=== PATIENT | male | born 1980 | race Caucasian/White ===

== ENCOUNTER 2023-05-05 13:55 | Inpatient (IN) | payer OTHER, SELFPAY ==
[2023-05-05] VITALS (25 sets, daily range): BP systolic 98–135; BP diastolic 47–103; PULSE 109–129; RESP 16–27; TEMP 36.9–39.2; O2SAT 89–100
--- NOTE | ~2023-05-05 | US_ITS ---
EXAMINATION: US venous doppler [facility] DATE: 05/06/2023 15:08 INDICATION: SOB . TECHNIQUE: Grayscale images without and with compression and Doppler images of the bilateral lower ex tremity veins were obtained. COMPARISON: None FINDINGS: The right common femoral vein, profunda (deep) femoral vein, femoral vein, popliteal vein, peroneal v ein, posterior tibial veins, gastrocnemius vein, and greater saphenous vein are patent. The left common femoral vein, profunda (deep) femoral vein, femoral vein, popliteal vein, peroneal v ein, posterior tibial veins, gastrocnemius vein, and greater saphenous vein are patent. IMPRESSION: Patent bilateral lower extremity veins. No evidence of deep venous thrombosis. Reviewed, dictated and finalized at location K.
--- NOTE | ~2023-05-05 | CT_ITS ---
EXAMINATION: CTA chest PE protocol DATE: 05/05/2023 19:08 INDICATION: hypoxia, flu+; upper back pain TECHNIQUE: Computed tomography angiography (CTA) of the chest was performed with 100 mL Omnipaque-350 intravenous contrast timed to evaluate the pulmonary arteries. Coronal maximum intensity projection 3D-reconstructions were created by the technologist. The dose-length product (DLP) was 1024.81 mGy-cm . Automated exposure control and iterative reconstruction technique were employed. COMPARISON: None. FINDINGS: Lung parenchyma and airways: Confluent and centrilobular nodular consolidative opacities in the bilat eral lower lobes. Focal scattered areas of subsegmental consolidation and groundglass opacity present in the remaining lung lobes. Pleura: Unremarkable. Thoracic inlet, axillae and chest wall: Unremarkable. Thoracic aorta: No significant dilation. No dissection. Mediastinum: Enlarged mediastinal lymph nodes. Heart and pericardium: Normal. Coronary artery calcifications: Absent. Upper abdomen: No significant finding. Bones: No acute osseous finding. Pulmonary arteries: Study quality: There is motion artifact, worst in the lower lobes, somewhat limit ed evaluation of the left lower lobe segmental and subsegmental pulmonary arteries. No pulmonary embo li detected. IMPRESSION: No definite CT evidence of acute pulmonary embolus, noting that motion artifact limits evaluation of the left lower lobe subsegmental and segmental arteries. Severe bilateral multifocal pneumonia. Mediastinal lymphadenopathy. Reviewed, dictated and finalized at location K.
--- NOTE | ~2023-05-05 | XR_ITS ---
XR chest 1V portable 05/11/2023 06:05 Indication: Shortness of breath Procedure: AP portable chest Comparison: Comparison to multiple prior studies sequentially, with oldest reviewed study dated 05/06. Findings: Patchy bibasilar airspace disease. No significant effusion. No pneumothorax. Impression: 1: Patchy bibasilar airspace disease which may reflect edema or pneumonia. Reviewed, dictated and finalized at location A. Impression: 1: Patchy bibasilar airspace disease which may reflect edema or pneumonia.
--- NOTE | ~2023-05-05 | CT_ITS ---
EXAMINATION: CTA chest PE protocol DATE: 05/11/2023 16:57 INDICATION: Tachycardia TECHNIQUE: Computed tomography angiography (CTA) of the chest was performed with 100 mL Omnipaque-350 intravenous contrast timed to evaluate the pulmonary arteries. Coronal maximum intensity projection 3D-reconstructions were created by the technologist. The dose-length product (DLP) was 847.86 mGy-cm. Automated exposure control and iterative reconstruction technique were employed. COMPARISON: CTPA 05/05/2023. FINDINGS: Lung parenchyma and airways: Multifocal groundglass and consolidative opacities, stable in the bilate ral upper lungs, slightly improving in the bilateral lower lungs. Pleura: Unremarkable. Thoracic inlet, axillae and chest wall: Unremarkable. Thoracic aorta: No significant dilation. No dissection. Mediastinum: Left hilar lymphadenopathy. Heart and pericardium: RV/LV ratio 1.2. Coronary artery calcifications: Absent. Upper abdomen: No significant finding. Bones: No acute osseous finding. Pulmonary arteries: Study quality: Motion artifact limits evaluation in the lower lobes. Multiple halie ateral upper lobe occlusive and nonocclusive segmental and subsegmental emboli. IMPRESSION: Multiple bilateral upper lobe acute occlusive and nonocclusive segmental and subsegmental pulmonary e mboli. Moderate clot burden. RV/LV ratio 1.2. Bilateral multifocal pneumonia. Results pertaining to acute pulmonary embolism reported telephonically to Gita Good RN by Wally Ferreira at 5:34 PM on 05/11/2023. Reviewed, dictated and finalized at location K. IMPRESSION: Multiple bilateral upper lobe acute occlusive and nonocclusive segmental and andrade bsegmental pulmonary emboli. Moderate clot burden. RV/LV ratio 1.2. Bilateral multifocal pneumonia. Results pertaining to acute pulmonary embolism reported telephonically to Shana Good RN by Dr. Ferreira at 5:34 PM on 05/11/2023.
--- NOTE | ~2023-05-05 | XR_ITS ---
EXAMINATION: XR chest 2V DATE: 05/15/2023 13:42 INDICATION: Pneumonia. TECHNIQUE: Frontal and lateral views of the chest were obtained. COMPARISON: Chest single view 05/11/2023, chest CT 05/11/2023 FINDINGS: There are patchy airspace opacities in the lungs involving all lobes. There are small pleur al effusions. No pneumothorax. The heart size is normal. There is mild chronic anterior wedging of mu ltiple vertebral bodies. IMPRESSION: 1. Diffuse lung disease with worsening on the right from 05/11/2023, consistent with pneumonia. 2. Small pleural effusions. Reviewed, dictated and finalized at location A.
--- NOTE | ~2023-05-05 | XR_ITS ---
Portable chest x-ray Comparison: 06/29/2005 Clinical History: Shortness of breath Findings: There is extensive bibasilar and right perihilar consolidation. Possible small right pleur al effusion. Cardiomediastinal silhouette is stable. Bones and soft tissues are unremarkable. Impression: Extensive bibasilar and right perihilar consolidation. Correlate for pulmonary edema versus pneumonia . Suspected small right pleural effusion. Reviewed, dictated and finalized at location . Impression: Extensive bibasilar and right perihilar consolidation. Correlate for pulmonary edema versus pneumonia. Suspected small right pleural effusion.
--- NOTE | ~2023-05-05 | US_ITS ---
EXAMINATION: US venous doppler LE DATE: 05/11/2023 15:56 INDICATION: Lower limb pain. TECHNIQUE: Grayscale images without and with compression and Doppler images of the bilateral lower ex tremity veins were obtained. COMPARISON: 05/06/2023 FINDINGS: The right common femoral vein, profunda (deep) femoral vein, femoral vein, popliteal vein, posterior tibial veins, and greater saphenous vein are patent. Noncompressible left posterior tibial vein, with minimal to no flow. The left common femoral vein, pr ofunda (deep) femoral vein, femoral vein, popliteal vein, peroneal vein, and greater saphenous vein are patent. IMPRESSION: Acute DVT involving the left posterior tibial vein. No right lower extremity DVT, noting that the right peroneal veins were not visualized. Reviewed, dictated and finalized at location K. IMPRESSION: Acute DVT involving the left posterior tibial vein. No right lower extremity DVT, noting that the right peroneal veins were not vis ualized.
--- NOTE | ~2023-05-05 | XR_ITS ---
Portable chest x-ray Comparison: 05/07/2023 Clinical History: Shortness of breath Findings: There is bibasilar airspace consolidation, unchanged. Possible minimal pleural effusions. Cardiomediastinal silhouette is stable. Bones and soft tissues are unremarkable. Impression: Bibasilar pulmonary edema versus pneumonia. Minimal pleural effusions. Reviewed, dictated and finalized at [facility]. Impression: Bibasilar pulmonary edema versus pneumonia. Minimal pleural effusions.
--- NOTE | 2023-05-05 14:11 | PC.NURSE ---
Pt 88% on room air. 2L of 02NC applied in triage pt now 92%.
--- NOTE | 2023-05-05 15:25 | ECG_ITS ---
Measurements Intervals [place] Rate: 117 P: 56 WA: 146 QRS: 118 QRSD: 105 T: 54 QT: 313 QTc: 437 Interpretive Statements SINUS TACHYCARDIA RIGHT AXIS DEVIATION INCOMPLETE RIGHT BUNDLE BRANCH BLOCK BORDERLINE ST-T WAVE ABNORMALITY- ANT/INF LEADS BASELINE ARTIFACT- II, III ABNORMAL ECG NO PREVIOUS ECG AVAILABLE FOR COMPARISON Electronically Signed On 05-05-2023 17:29:46 CDT by Randal Laird D.O.
--- NOTE | 2023-05-05 15:26 | ED.URI ---
HPI - URI/Sore Throat General Chief Complaint: Upper Respiratory Infection Stated Complaint: Flu A + and has brown sputum Time Seen by Provider: 05/05/23 15:09 History of Present Illness HPI Narrative: Patient is a 42-year-old male presenting with shortness of breath. Patient states that he was diagnosed with influenza approximately 3 days ago. He was sent home with Tamiflu, prednisone, and inhaler. States that he took all of these as prescribed but he continues to worsen. Complains of diffuse body aches as well as upper back pain. Feel short of breath. Has been coughing up brown sputum. States he has had no appetite but no vomiting, no abdominal pain. No leg swelling. No further complaints. Related Data Home Medications Medication Instructions Recorded Confirmed No Home Medications 05/05/23 05/05/23 Allergies Allergy/AdvReac Type Severity Reaction Status Date / Time No Known Allergies Allergy Verified 05/05/23 16:32 Review of Systems Review of Systems: All systems reviewed & are unremarkable except as noted in HPI and below PMFSH Past Medical History Medical History (Updated 05/09/23 @ 22:02 by Erica Livingston MD) Continuous tobacco abuse Morbid obesity with BMI of 40.0-44.9, adult Surgical History Surgical History (Updated 05/05/23 @ 22:28 by Linda Landis DO) No history of previous surgery Family History Family History (Updated 05/05/23 @ 22:29 by Linda Landis DO) Mother Healthy adult Social History Social History (Updated 05/05/23 @ 22:31 by Linda Landis DO) Social History: the patient has been from his since 2017. He has 2 sons ages 8 and 5. He is currently unemployed. 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 He smokes 3 cigars a day since his early 20s. He denies any alcohol use. Code status: Full code surrogate decision maker: Tory Pearce Smoking status: Current some day smoker Tobacco type: cigars Alcohol intake: never Substance use type: former substance user, marijuana and heroin Last use: Heroin quit in 2007, Currently uses Marijuana Do You Feel Safe in your Home?: Yes Lack of Transportation: No Lack of Food: Never True Current Housing: I Have Housing Concerned About Future Housing: No Difficulty Paying Gas/Electric Bills: No Difficulty Paying for Meds: No Currently Unemployed: No Education: High School Diploma/GED Difficulty w/ Childcare or Family Care: No Spiritual care concerns: No Exam Narrative: GENERAL: Ill-appearing, pleasant and cooperative HEAD: Normocephalic, atraumatic. EYES: PERRLA and EOMI. ENT: Mucous membranes dry NECK: Supple. CHEST: Coarse breath sounds bilaterally HEART: Tachycardic, regular rhythm ABDOMEN: Soft, nontender, nondistended EXTREMITIES: Normal range of motion. No edema. SKIN: Warm, dry, no rash. NEURO: No focal deficits. Alert and oriented x3. PSYCH: Normal mood and affect. Course Vital Signs Vital signs: Vital Signs Temperature 102.5 F H 05/05/23 14:02 Pulse Rate 129 H 05/05/23 14:02 Respiratory Rate 16 05/05/23 14:02 Blood Pressure 135/73 05/05/23 14:02 Pulse Oximetry 89 L 05/05/23 14:02 Temperature 97.6 F 05/09/23 20:00 Pulse Rate 104 H 05/09/23 20:42 Respiratory Rate 20 05/09/23 20:42 Blood Pressure 137/74 05/09/23 20:00 Pulse Oximetry 97 05/09/23 20:59 Oxygen Delivery Nasal Cannula 05/09/23 20:59 Oxygen Flow Rate 2 05/09/23 20:59 Fraction of Inspired Oxygen 21 05/09/23 03:25 Procedures Central Line Placement Right Femoral: Central Line Date: 05/05/23 Central Line Time: 17:51 Discussed w/ the patient/family/POA,the placement of a central venous catheter, including its clinical necessity/indication & associated potential risks, benifits and alternatives.: Yes The patient/family/POA understand(s) and acknowledge(s) the need to proceed with pelon
--- NOTE | 2023-05-05 16:27 | PC.NURSE ---
Provider aware of multiple PIV attempts and unable to obtain blood samples, another nurse in room at this time attempting. No further orders.
[2023-05-05 17:09] LABS: Influenza A QL RT-PCR Positive (Negative); Influenza B QL RT-PCR Negative (Negative); RSV RNA, RT-PCR Negative (Negative); SARS-CoV-2 RNA PCR Negative (Negative)
[2023-05-05] MEDS: MORPHINE SULFATE INJ (*CRX) 10 MG/ML AMP IM (17:09)
--- NOTE | 2023-05-05 17:12 | PC.NURSE ---
Dr. Livingston at bedside to insert R fem central line.
[2023-05-05] MEDS: SODIUM CHLORIDE 0.9% IV 1,000 ML 999 ML IV CONT ×4 (17:28→22:59)
[2023-05-05 18:11] LABS: Hematocrit 42.6 % (42.0-52.0); Hemoglobin 14.2 g/dL (14.0-18.0); Immature Granulocyte Absolute 0.13 K/mm3 (0.00-0.031); Immature Granulocyte Percent A 2.9 % (0-0.5); Immature Platelet Fraction Pct 6.5 % (0.9-11.2); Lymphocytes Absolute Auto 0.57 K/mm3 (0.9-3.2); Lymphocytes Percent Auto 12.7 % (18.3-44.2); Mean Corpuscular HGB Conc 33.3 g/dl (32-36); Mean Corpuscular Hemoglobin 27.4 pg (26-34); Mean Corpuscular Volume 82.1 fl (80-100); Mean Platelet Volume 10.4 fl (7.4-10.4); Monocytes Absolute Auto 0.4 K/mm3 (0.1-0.6); Monocytes Percent Auto 8.7 % (2.6-8.5); Neutrophils Absolute Auto 3.4 K/mm3 (1.3-6.7); Neutrophils Percent Auto 75.7 % (45.5-73.1); Platelet Count Result 131 k/mm3 (150-375); Red Blood Count 5.19 M/mm3 (4.6-6.20); Red Cell Distribution Width 13.9 % (11.5-14.5); White Blood Count 4.5 K/mm3 (4.5-10.0)
[2023-05-05 18:20] LABS: Lactic Acid Reflex 1.6 mmol/L (0.7-2.0); Prothrombin Time 13.6 Seconds (11.1-14.7)
[2023-05-05 18:21] LABS: Alanine Aminotransferase 43 U/L (6-50); Albumin Level 3.5 g/dL (3.5-5.1); Alkaline Phosphatase 110 U/L (38-126); Anion Gap 1 mmol/L (8-16); Aspartate Amino Transferase 143 U/L (17-59); Bilirubin,Total 0.5 mg/dL (0.2-1.3); Blood Urea Nitrogen 10 mg/dL (9-20); Carbon Dioxide 32 mmol/L (22-30); Chloride 99 mmol/L (98-107); Estimated CRCL calculation 123 ml/min; Estimated Glomerular Filt Rate > 60; Glucose 118 mg/dL (65-110); Lipase 25 U/L (23-300); Partial Thromboplastin Time 34.9 Seconds (22.3-36.8); Potassium 3.5 mmol/L (3.4-5.0); Sodium 132 mmol/L (137-145)
[2023-05-05 18:33] LABS: Troponin I 0.026 ng/mL (0.000-0.034)
[2023-05-05] MEDS: PIPERACILLN/TAZ 3.375GM/NS50ML 3.375 GM/50 ML BAG IVPB (19:30)
[2023-05-05] MEDS: AZITHROMYCIN 500 MG/NS 250 ML 500 MG/250 ML BAG 250 MG IVPB (19:31)
[2023-05-05 20:04] LABS: MRSA (PCR) NOT DETECTED (NOT DETECTE)
[2023-05-05] MEDS: VANCOMYCIN 1,250 MG/NS 250 ML 1,250 MG/250 ML BAG 166.67 MG IVPB ×2 (21:26→22:40)
[2023-05-05 22:19] LABS: Fractional Inspired Oxygen 29 %; HCO3 VBG 22.8 mEq/l (24.0-30.0); PCO2 VBG 42.3 mmHg (42.0-48.0); PO2 VBG 31.3 mmHg (35.0-45.0)
[2023-05-05 22:20] LABS: Device NASAL CANNULA; Liters per Minute 2.5 LPM
--- NOTE | 2023-05-05 22:25 | PM.IMHP ---
H&P: HPI History of Present Illness Date/Time: 05/05/23 22:25 Chief Complaint: Flu with no improvement Narrative: 42-year-old male with past medical history of morbid obesity who presented to the ER with worsening respiratory symptoms after being diagnosed with influenza on the . The patient reports that he does not have any significant medical history but he also has not been evaluated by a doctor since 2017. He initially started having symptoms with generalized body aches, fever up to 104?, cough productive of brown sputum and chills on the . He he was evaluated at [facility] and provided with Tamiflu and Medrol Dosepak and albuterol inhaler. He completed both those today. Despite taking medications the symptoms have continued to worsen with increased work of breathing and not being able to sleep for 2 days due to high fever. He is noted to be wheezing right lung on exam and had crackles diffusely throughout all lung lucia. He has had decreased appetite. He has white plaquing noted to the tongue the rest of your exam was limited due to crowding of posterior oropharynx and patient's condition. He reports that his abdomen feels more tight since he came into the ER. He did receive 3 L normal saline bolus. His blood pressures were in the low 80s systolic just after my evaluation and he received another L bolus. Although the patient did not have significant leukocytosis CTA of the chest did demonstrate diffuse multifocal pneumonia. On exam he was grossly mottled and had delayed cap refill. Given his clinical appearance he was started on broad-spectrum antibiotic coverage in the ER. He did have drop in oxygen levels down to the mid 80s and placed on 2 L nasal cannula. He appeared critically RO at the time of my evaluation and have venous blood gas was obtained which was unremarkable except for a slightly lower PO2 than would be expected. Patient denies any history of prior lung disease, recent ill contacts, chest pain, palpitations. The patient reports that he feels better on oxygen and that is why the he is so somnolent and just wants to sleep. He states he has not slept in 2 days. Although the patient is still slow to respond to questions and is giving delayed responses. He denies any head injury dizziness and there was no localizing weakness on exam Review of Systems Review of Systems: 12 systems were reviewed with pertinent positives and negatives per HPI. Except as documented in the HPI, all other systems were reviewed and are negative. PMFSH Past Medical History Medical History (Updated 05/06/23 @ 03:15 by Linda Landis DO) Continuous tobacco abuse Morbid obesity with BMI of 40.0-44.9, adult Surgical History Surgical History (Updated 05/05/23 @ 22:28 by Linda Landis DO) No history of previous surgery Family History Family History (Updated 05/05/23 @ 22:29 by Linda Landis DO) Mother Healthy adult Social History Social History (Updated 05/05/23 @ 22:31 by Linda Landis DO) Social History: the patient has been from his since 2017. He has 2 sons ages 8 and 5. He is currently unemployed. 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 He smokes 3 cigars a day since his early 20s. He denies any alcohol use. Code status: Full code surrogate decision maker: Tory Gleason Home Medications and Allergies Home Medications Medication Instructions Recorded Confirmed Type No Home Medications 05/05/23 05/05/23 History Allergies Allergy/AdvReac Type Severity Reaction Status Date / Time No Known Allergies Allergy Verified 05/05/23 16:32 Vital Signs Vital Signs - 24 hr 05/05/23 14:02 05/05/23 16:29 05/05/23 15:01 Temperature 102.5 F H Pulse Rate 129 H 120 H Respiratory Rate 16 17 Blood Pressure 135/73 121/63 Pulse Oximetry 89 L 95 91 Oxygen Delivery Nasal Cannula Oxygen Flow Rate 2 05/05/23 15:16 05/05/23
[2023-05-05 23:29] LABS: Troponin I 0.025 ng/mL (0.000-0.034)
[2023-05-06] VITALS (32 sets, daily range): BP systolic 104–132; BP diastolic 59–108; PULSE 98–114; RESP 19–29; TEMP 35.6–37.1; O2SAT 87–100; BMI 46.0
[2023-05-06 03:05] LABS: Troponin I 0.036 ng/mL (0.000-0.034)
[2023-05-06 03:12] LABS: Estimated CRCL calculation 110 ml/min; Estimated Glomerular Filt Rate > 60
[2023-05-06] MEDS: CEFEPIME 2 GM/NS 50 ML 2 GM/50 ML BAG IVPB ×3 (04:20→20:45)
[2023-05-06 07:35] LABS: Alanine Aminotransferase 45 U/L (6-50); Albumin Level 2.9 g/dL (3.5-5.1); Alkaline Phosphatase 95 U/L (38-126); Anion Gap 1 mmol/L (8-16); Aspartate Amino Transferase 158 U/L (17-59); Basophils Percent Auto 0.5 % (0.2-1.2); Bilirubin,Total 0.4 mg/dL (0.2-1.3); Blood Urea Nitrogen 8 mg/dL (9-20); Calcium 7.4 mg/dL (8.4-10.2); Carbon Dioxide 29 mmol/L (22-30); Chloride 105 mmol/L (98-107); Estimated CRCL calculation 139 ml/min; Estimated Glomerular Filt Rate > 60; Glucose 97 mg/dL (65-110); Hematocrit 41.7 % (42.0-52.0); Hemoglobin 13.3 g/dL (14.0-18.0); Immature Granulocyte Absolute 0.03 K/mm3 (0.00-0.031); Immature Granulocyte Percent A 0.7 % (0-0.5); Immature Platelet Fraction Pct 7.2 % (0.9-11.2); Lymphocytes Absolute Auto 0.92 K/mm3 (0.9-3.2); Lymphocytes Percent Auto 21.1 % (18.3-44.2); Mean Corpuscular HGB Conc 31.9 g/dl (32-36); Mean Corpuscular Hemoglobin 27.1 pg (26-34); Mean Corpuscular Volume 84.9 fl (80-100); Mean Platelet Volume 10.4 fl (7.4-10.4); Monocytes Absolute Auto 0.3 K/mm3 (0.1-0.6); Monocytes Percent Auto 6.7 % (2.6-8.5); Neutrophils Absolute Auto 3.1 K/mm3 (1.3-6.7); Platelet Count Result 108 k/mm3 (150-375); Potassium 3.4 mmol/L (3.4-5.0); Red Blood Count 4.91 M/mm3 (4.6-6.20); Red Cell Distribution Width 14.2 % (11.5-14.5); Sodium 135 mmol/L (137-145); White Blood Count 4.4 K/mm3 (4.5-10.0)
--- NOTE | 2023-05-06 08:36 | PC.NURSE ---
breakfast special tray ordered
--- NOTE | 2023-05-06 08:49 | PM.IMPN ---
Progress Note: A&P Assessment and Plan (1) Sepsis: Qualifiers: Sepsis acute organ dysfunction status: with acute organ dysfunction Sepsis type: sepsis due to unspecified organism Severe sepsis acute organ dysfunction type: encephalopathy Severe sepsis shock status: without septic shock Qualified Code(s): A41.9 - Sepsis, unspecified organism; R65.20 - Severe sepsis without septic shock; G93.41 - Metabolic encephalopathy Code(s): A41.9 - Sepsis, unspecified organism Status: Acute Assessment and Plan: Sepsis present on admission with tachycardia, fever, tachypnea, leukopenia and thrombocytopenia CTA of the chest showing no obvious PE but limited due to motion artifact; bilateral lower lobes right greater left airspace disease Sepsis related to acute multifocal pneumonia complicating recent influenza A infection. BCx pending Sputum Cx pending Started on broad spectrum antibiotic with cefepime, azithromycin and vanc according to antibiotic stewardship guidelines Extensive mottling noted - check ABG, lactic, DIC panel, PCT, Continue abx and nebulizer treatments Check urine Ag (2) Acute hypoxic respiratory failure: Code(s): J96.01 - Acute respiratory failure with hypoxia Status: Acute Assessment and Plan: Patient presents with shortness of breath and found to be hypoxic. He remains stable on 2-3 L of oxygen since admission. Wean oxygen as tolerated. (3) Multifocal pneumonia: Code(s): J18.9 - Pneumonia, unspecified organism Status: Acute Assessment and Plan: As above (4) Rhabdomyolysis: Code(s): M62.82 - Rhabdomyolysis Status: Acute Assessment and Plan: TCK 4100. Rhabdomyolysis related to Influenza A Resume IV fluids. Check UA Monitor UOP, renal function closely (5) Influenza A: Code(s): J10.1 - Influenza due to other identified influenza virus with other respiratory manifestations Status: Acute Assessment and Plan: Patient diagnosed with influenza on May 01. Influenza a PCR positive here confirming the diagnosis. Although patient is out of the window for treatment normally, will start Tamiflu given the severity of his illness. Symptomatic care. (6) Encephalopathy due to infection: Code(s): G93.49 - Other encephalopathy; B99.9 - Unspecified infectious disease Status: Acute Assessment and Plan: Patient was mildly confused on admission. Related to bacterial pneumonia and influenza. No CT the brain performed. No focal weakness. Mental status is improved today. Continue to monitor. (7) Morbid obesity with BMI of 40.0-44.9, adult: Code(s): E66.01 - Morbid (severe) obesity due to excess calories; Z68.41 - Body mass index [BMI] 40.0-44.9, adult Status: Acute Assessment and Plan: BMI 45. Encourage lifestyle modification (8) Continuous tobacco abuse: Code(s): Z72.0 - Tobacco use Status: Acute Assessment and Plan: Patient smokes cigars. He was educated about the benefits of smoking cessation. Plan DVT Prophylaxis - SCDs Codes status - Full Subjective Date/time seen: 05/06/23 08:49 Interval history: 42yo healthy male with tobacco use and obesity here for body aches, fever and cough. He was recently diagnosed with influenza on 05/01. Patient feels 'groggy'. He feels 'sore' everywhere as myalgia. He states he was having hemoptysis but this has resolved and now just expectorating mucous. Having chest pain worse with cough but not palpable or pleuritic. Exam Narrative: Tm 102.5 98.2 117/78 107 22 96% 3L Gen - NARD lying semi-recumbent in bed Chest - coarse BS with expiratory wheezes. nml RR CV - tachycardic, regular Abd - soft obese NT +BS Ext - no edema. Neuro - AOx4 Skin - cool to touch. mottling to midabdomen. cap refill 3 sec in toes. Objective Data Vital Signs Vital Signs: Vital Signs - 24 hr
[2023-05-06] MEDS: VANCOMYCIN 1,500 MG/NS 500 ML 1,500 MG/500 ML BAG 250 MG IVPB (09:01)
[2023-05-06] MEDS: IPRATROPIUM BR 0.02% INH SOLN 0.5 MG/2.5 ML VIAL INHALATION ×3 (09:08→20:48)
[2023-05-06] MEDS: LEVALBUTEROL NEB 1.25 MG/3 ML INHALATION ×3 (09:08→20:49)
[2023-05-06 09:15] LABS: Alveolar/Arterial O2 Gradient 85.6 mmHg; Base Excess ABG 1.1 mEq/l (+/-2.0); Fractional Inspired Oxygen 32 %; HCO3 ABG 27.5 mEq/l (22.0-26.0); Oxygen Content ABG 18.7 %vol (16.0-22.0); Oxygen Saturation ABG 95.7 % (95.0-100.0); Oxyhemoglobin 94.5 % THb (90.0-100.0); PCO2 ABG 50.3 mmHg (35.0-45.0); PO2 ABG 83.7 mmHg (80.0-100.0); PO2 FiO2 Ratio Arterial Blood 2.62 %; pH ABG 7.355 (7.350-7.450)
[2023-05-06 09:16] LABS: Device NASAL CANNULA; Modified Allen's Test Pass; Site Drawn RIGHT RADIAL
[2023-05-06 09:22] LABS: Immature Platelet Fraction Pct 7.3 % (0.9-11.2); Mean Platelet Volume 11.2 fl (7.4-10.4); Platelet Count Result 102 k/mm3 (150-375)
[2023-05-06 09:30] LABS: Lactic Acid Reflex 1.1 mmol/L (0.7-2.0)
[2023-05-06 09:35] LABS: Magnesium 1.5 mg/dL (1.6-2.3)
[2023-05-06 09:49] LABS: CRP 20.3 mg/dL (<1.0)
[2023-05-06 10:00] LABS: Creatine Kinase 4105 U/L (55-170)
[2023-05-06 10:10] LABS: Procalcitonin 1.2 ng/mL
[2023-05-06] MEDS: OSELTAMIVIR PHOSPHATE 75 MG CAPSULE PO ×2 (10:41→20:45)
--- NOTE | 2023-05-06 11:35 | PC.NURSE ---
Dr. Simon notified pt complaining of pain and request for pain medication.
[2023-05-06] MEDS: ACETAMINOPHEN 325 MG TABLET 650 MG PO ×3 (12:03→23:24)
[2023-05-06] MEDS: POTASSIUM CHLORIDE 20 MEQ ER TABLET 40 MEQ PO (12:03)
[2023-05-06] MEDS: SODIUM CHLORIDE 0.9% IV 1,000 ML 150 ML IV CONT ×3 (12:03→22:07)
--- NOTE | 2023-05-06 12:21 | PC.NURSE ---
Food tray ordered
[2023-05-06 12:39] LABS: Prothrombin Time 13.6 Seconds (11.1-14.7)
[2023-05-06 12:40] LABS: Fibrinogen 410 mg/dl (215-510); Partial Thromboplastin Time 37.1 Seconds (22.3-36.8)
[2023-05-06 13:05] LABS: D Dimer 2.54 ug/mL (<0.48)
[2023-05-06] MEDS: MAGNESIUM SULF 2 GM/WATER 50ML 2 GM/50 ML BAG IVPB (16:11)
[2023-05-06] MEDS: AZITHROMYCIN 500 MG/NS 250 ML 500 MG/250 ML BAG 250 MG IVPB (20:46)
[2023-05-06 23:56] LABS: Appearance Urine Clear (Clear); Bacteria Urine None Seen /hpf; Bilirubin Urine Negative (Negative); Blood Urine 2+ (Negative); Color Urine Yellow (Yellow); Glucose Urine UA Negative (Negative); Ketones Urine Negative (Negative); Leukocyte Esterase Ur Negative LEU/UL (Negative); Nitrate Urine Negative (Negative); Protein Urine 2+ mg/dL (Negative); RBC Urine 0-2 /hpf (0-2); Specific Grav Ur 1.025 (1.001-1.035); Squamous Epithelial Cell Urine Occasional /hpf (Few); Urobilinogen Urine 0.2 mg/dL (<2.0); WBC Urine 0-5 /hpf (0-3); pH Urine 5.5 (5.0-9.0)
--- NOTE | 2023-05-06 23:57 | PCRCNOTE ---
RT spoke to patient's nurse, both agreeing that apnea link will be attempted the night of 05/07/23 if patient is doing better. Pt is overly tired and diaphoretic. RN aware.
[2023-05-07] VITALS (31 sets, daily range): BP systolic 111–151; BP diastolic 50–83; PULSE 92–121; RESP 20–26; TEMP 35.7–37.3; O2SAT 93–100
[2023-05-07] LABS: Add Urine Microscopic? YES
[2023-05-07] MEDS: LEVALBUTEROL NEB 1.25 MG/3 ML INHALATION ×4 (02:03→20:48)
[2023-05-07] MEDS: IPRATROPIUM BR 0.02% INH SOLN 0.5 MG/2.5 ML VIAL INHALATION ×4 (02:04→20:48)
[2023-05-07] MEDS: CEFEPIME 2 GM/NS 50 ML 2 GM/50 ML BAG IVPB ×3 (03:47→21:18)
[2023-05-07] MEDS: SODIUM CHLORIDE 0.9% IV 1,000 ML 150 ML IV CONT (05:20)
[2023-05-07] MEDS: ALPRAZolam (*CRX) 0.25 MG TABLET PO (05:41)
[2023-05-07] MEDS: FUROSEMIDE INJ 40 MG/4 ML VIAL IV PUSH (06:20)
[2023-05-07 09:51] LABS: Alveolar/Arterial O2 Gradient 118.3 mmHg; Fractional Inspired Oxygen 32 %; HCO3 ABG 34.7 mEq/l (22.0-26.0); Oxygen Content ABG 18.1 %vol (16.0-22.0); PCO2 ABG 56.4 mmHg (35.0-45.0); PO2 FiO2 Ratio Arterial Blood 1.37 %; Total Hemoglobin 15.2 g/dL (12.0-18.0); pH ABG 7.407 (7.350-7.450)
[2023-05-07 09:52] LABS: PO2 ABG 43.9 mmHg (80.0-100.0)
[2023-05-07 09:53] LABS: Oxygen Saturation ABG 79.1 % (95.0-100.0)
[2023-05-07 09:54] LABS: Device NASAL CANNULA; Modified Allen's Test Pass; Site Drawn LEFT RADIAL
[2023-05-07] MEDS: OSELTAMIVIR PHOSPHATE 75 MG CAPSULE PO ×2 (10:37→21:18)
[2023-05-07 12:27] LABS: Alveolar/Arterial O2 Gradient 166.1 mmHg; Base Excess ABG 5.9 mEq/l (+/-2.0); Carboxyhemoglobin 0.3 % THb (0-2.0); Fractional Inspired Oxygen 55 %; HCO3 ABG 29.2 mEq/l (22.0-26.0); Methemoglobin ABG 0.3 %THb (0-1.5); Oxygen Saturation ABG 99.4 % (95.0-100.0); Oxyhemoglobin 97.8 % THb (90.0-100.0); PCO2 ABG 37.7 mmHg (35.0-45.0); PO2 ABG 184.1 mmHg (80.0-100.0); PO2 FiO2 Ratio Arterial Blood 3.35 %; Reduced Hemoglobin 1.6 %THb (0-5.0); Total Hemoglobin 14.3 g/dL (12.0-18.0)
[2023-05-07 12:29] LABS: Device NON-INVASIVE VENT; Modified Allen's Test Pass; Site Drawn LEFT RADIAL; pH ABG 7.507 (7.350-7.450)
[2023-05-07 12:30] LABS: Non-Invasive Expiratory Pressure 8 CMH2O; Non-Invasive Inspiratory Pressure 16 CMH2O; Non-Invasive Vent Rate 14 /MIN
[2023-05-07 13:26] LABS: Hematocrit 40.7 % (42.0-52.0); Hemoglobin 13.6 g/dL (14.0-18.0); Immature Platelet Fraction Pct 7.9 % (0.9-11.2); Mean Corpuscular HGB Conc 33.4 g/dl (32-36); Mean Corpuscular Hemoglobin 27.8 pg (26-34); Mean Corpuscular Volume 83.1 fl (80-100); Mean Platelet Volume 10.7 fl (7.4-10.4); Platelet Count Result 105 k/mm3 (150-375); Red Cell Distribution Width 14.1 % (11.5-14.5); White Blood Count 5.4 K/mm3 (4.5-10.0)
[2023-05-07 13:37] LABS: Alanine Aminotransferase 44 U/L (6-50); Albumin Level 2.9 g/dL (3.5-5.1); Alkaline Phosphatase 99 U/L (38-126); Anion Gap 0 mmol/L (8-16); Aspartate Amino Transferase 133 U/L (17-59); Bilirubin,Total 0.5 mg/dL (0.2-1.3); Blood Urea Nitrogen 4 mg/dL (9-20); Calcium 7.8 mg/dL (8.4-10.2); Carbon Dioxide 36 mmol/L (22-30); Chloride 97 mmol/L (98-107); Estimated CRCL calculation 162 ml/min; Estimated Glomerular Filt Rate > 60; Glucose 99 mg/dL (65-110); Magnesium 1.7 mg/dL (1.6-2.3); Phosphorus 3.2 mg/dL (2.5-4.5); Potassium 3.2 mmol/L (3.4-5.0); Sodium 133 mmol/L (137-145)
[2023-05-07 13:47] LABS: Band Neutrophils Percent 3 % (0-6); Lymphocytes Absolute Manual 0.43 K/mm3 (1.1-4.5); Monocytes Absolute Manual 0.37 K/mm3 (0.1-0.90); Monocytes Percent Manual 7 % (3-9); Neutrophils Absolute Manual 4.59 K/mm3 (1.3-6.7); Neutrophils Percent Manual 82 % (46-73)
[2023-05-07 13:48] LABS: Atypical Lymphocytes Present; Platelet Estimate Slightly Decreased (Adequate); Schistocytes None Seen
[2023-05-07 13:49] LABS: Large Platelets Present; Total Cells Counted 100
--- NOTE | 2023-05-07 14:55 | PM.IMPN ---
Progress Note: A&P Assessment and Plan (1) Sepsis: Qualifiers: Sepsis type: sepsis due to unspecified organism Sepsis acute organ dysfunction status: with acute organ dysfunction Severe sepsis acute organ dysfunction type: encephalopathy Severe sepsis shock status: without septic shock Qualified Code(s): A41.9 - Sepsis, unspecified organism; R65.20 - Severe sepsis without septic shock; G93.41 - Metabolic encephalopathy Code(s): A41.9 - Sepsis, unspecified organism Status: Acute Assessment and Plan: Sepsis present on admission with tachycardia, fever, tachypnea, leukopenia and thrombocytopenia CTA of the chest showing no obvious PE but limited due to motion artifact; bilateral lower lobes right greater left airspace disease Sepsis related to acute multifocal pneumonia complicating recent influenza A infection. continue bipap continue azithromycin and cefepime (2) Acute hypoxic respiratory failure: Code(s): J96.01 - Acute respiratory failure with hypoxia Status: Acute Assessment and Plan: Patient presents with shortness of breath and found to be hypoxic. start BIPAP ABG reviwed rpt ABG roya am (3) Multifocal pneumonia: Code(s): J18.9 - Pneumonia, unspecified organism Status: Acute Assessment and Plan: As above (4) Rhabdomyolysis: Code(s): M62.82 - Rhabdomyolysis Status: Acute Assessment and Plan: TCK 4100. Rhabdomyolysis related to Influenza A dc fluids pt is overloaded watch CK encourage oral hydration (5) Influenza A: Code(s): J10.1 - Influenza due to other identified influenza virus with other respiratory manifestations Status: Acute Assessment and Plan: Patient diagnosed with influenza on May 01. continue tamiflu Symptomatic care. (6) Encephalopathy due to infection: Code(s): G93.49 - Other encephalopathy; B99.9 - Unspecified infectious disease Status: Acute Assessment and Plan: Patient was mildly confused on admission. Related to bacterial pneumonia and influenza. No CT the brain performed. No focal weakness. Mental status is improved today. (7) Morbid obesity with BMI of 40.0-44.9, adult: Code(s): E66.01 - Morbid (severe) obesity due to excess calories; Z68.41 - Body mass index [BMI] 40.0-44.9, adult Status: Acute Assessment and Plan: BMI 45. Encourage lifestyle modification (8) Continuous tobacco abuse: Code(s): Z72.0 - Tobacco use Status: Acute Assessment and Plan: Patient smokes cigars. He was educated about the benefits of smoking cessation. Subjective Date/time seen: 05/07/23 14:55 Interval history: 42yo healthy male with tobacco use and obesity here for body aches, fever and cough. He was recently diagnosed with influenza on 05/01. Pt has a mottled appearance and appears SOB bipap started pt given iv fluids appears volume overloaded lV lasix has helped pt having good diuresis Nurse worried about pts health pt reviewed by ICU MD continue present care keep BIPAP on Review of Systems Review of Systems: tired sob mottled low grade fevers Exam Narrative: Gen -tired weak Chest - coarse BS with expiratory wheezes. nml RR CV - tachycardic, regular Abd - soft obese NT +BS Ext - no edema. Neuro - AOx4 Skin - cool to touch. mottling to midabdomen. cap refill 3 sec in toes. Objective Data Vital Signs Vital Signs: Vital Signs - 24 hr 05/06/23 15:45 05/06/23 16:20 05/06/23 16:00 Temperature 37.1 C 35.8 C L Pulse Rate 104 H 106 H 110 H Respiratory Rate 21 H Blood Pressure 104/60 111/59 L Pulse Oximetry 96 93 Oxygen Delivery Oxygen Flow Rate 05/06/23 16:00 05/06/23 18:00 05/06/23 18:28 Temperature Pulse Rate 107 H Respiratory Rate Blood Pressure Pulse Oximetry 97 100 Oxygen Delivery Nasal Cannula Room Air Oxygen Flow Rate 1
--- NOTE | 2023-05-07 21:03 | PM.CNPUL ---
Assessment and Plan Assessment and plan (1) Acute hypoxic respiratory failure: Code(s): J96.01 - Acute respiratory failure with hypoxia Status: Acute Assessment and Plan: He does not require oxygen at home, currently due to influenza A with suspected secondary bacterial pneumonia he has infiltrates, productive cough with purulence sputum production. His O2 requirement increased 20 waiting to flash pulmonary edema this evening, responded to Lasix, BiPAP. He was scheduled to have an ApneaLink. We will delay this until he is more stable. (2) Multifocal pneumonia: Code(s): J18.9 - Pneumonia, unspecified organism Status: Acute Assessment and Plan: May be secondary bacterial infection superimposed on viral pneumonia (3) Influenza A: Code(s): J10.1 - Influenza due to other identified influenza virus with other respiratory manifestations Status: Acute Assessment and Plan: With complications including rhabdomylysis Plan Cancel ApneaLink for tonight Continue bronchodilators, BiPAP as tolerated which is helping his oxygenation, oxygen was 55%, can be weaned because his PO2 was higher than require. Continue broad-spectrum antibiotics, await urine antigens for strep pneumonia, Legionella. His primary problem is influenza a with complications including rhabdomyolysis. Repeat CK. History of Present Illness History of Present Illness Consult date: 05/07/23 Requesting physician: Ranulfo Simon MD Chief complaint: Multifocal Pneumonia Narrative: Pt was seen May 07, 2023 Room 211 (23:00) Rt and RN at bedside NEW: Tacho Carvajal is a 42-year-old smoker who came in the hospital with shortness of breath, unable to sleep for 2 days due to high fever. He had hypotension, tachycardia, met criteria for sepsis. He has had decrease appetite. On admission he had tachycardia, fever, elevated respiratory rate with multifocal pneumonia on her CTA and a positive influenza a serology. On exam, he had lower extremity mottling, wheezing and crackles on exam. His arterial blood gas did not show severe CO2 retention. Today the highest pCO2 was 56, the initial pCO2 was 50.3, see blood gases below. He had rhabdomyolysis, mild lower extremity elevated CK due to influenza A. He was getting fluids for his rhabdomyolysis NS at 150/hour, today May 06 went into pulmonary edema, O2 saturation dropped into the mid 80% range on 2 liters/minute, better on BiPAP 16/8 with 55% FiO2 and Lasix. Initial broad-spectrum antibiotics were initiated Zosyn, azithromycin and vancomycin, changed to cefepime/ azithromycin and continuing vancomycin. He is also on nebulized bronchodilators. He has moderate amounts of wheezing. At home he does not use any respiratory medications. At home he generally does not have any sputum production although here he is coughing frequently producing discolored sputum. Smokes about 3 cigars per day and 1 marijuana joint. He is not a cigarette smoker. He has never had sleep testing. He snores. He has significant wheezing today. DATA * CK 4105 high, normal 170; elevated troponin 0.036, procalcitonin normal 1.2; CRP is elevated 20.3, sodium 133, potassium 3.2, chloride 97, HC03 36, BUN 4 creatinine 0.6. * 05/05/23 - Serology (+) influenza A; influenza B is negative, RSV, COVID, all negative * arterial blood gas 05/06/2023 pH 7.355/ pCO2 50.3 /pO2 83.7 /HC03 27.5/ saturation 95.7% on 3 liters/minute ABG 05/07/2023 9:45 a.m. pH 7.40/ pCO2 56.4 /pO2 43.9/ HC03 37.5 /saturation 79.1% on oxygen 3 liters/minutes ABG 05/07/2023 pH 7.50 pCO2 37.7/ pO2 184.1 /HC03 29.2/ saturation 99.4% on BiPAP 16/8 with oxygen 55% * WBC 5.4 with 82% neutrophils hemoglobin 13.6 hematocrit 40.7 platelets 105k. * 05.05.[address]
[2023-05-07] MEDS: AZITHROMYCIN 500 MG/NS 250 ML 500 MG/250 ML BAG 250 MG IVPB (21:19)
[2023-05-07] MEDS: CENTRAL LINE FLUSH 10 ML IV PUSH (21:19)
--- NOTE | 2023-05-07 23:38 | PCRCNOTE ---
Apnea link on HOLD for now. Pt is still very ill. On roomair, pt sats < 80%. Pt is requiring 4l NC of oxygen off the Bipap at night. Plus, Dr Cata Briggs saw him last night and thought it was a good idea to delay the apnea link until the patient status was better.
[2023-05-08] VITALS (27 sets, daily range): BP systolic 119–139; BP diastolic 46–78; PULSE 88–108; RESP 18–24; TEMP 35.6–37.2; O2SAT 92–100
[2023-05-08] MEDS: ACETAMINOPHEN 325 MG TABLET 650 MG PO ×2 (03:08→12:31)
[2023-05-08] MEDS: LEVALBUTEROL NEB 1.25 MG/3 ML INHALATION ×5 (03:42→20:01)
[2023-05-08] MEDS: IPRATROPIUM BR 0.02% INH SOLN 0.5 MG/2.5 ML VIAL INHALATION ×5 (03:42→20:00)
[2023-05-08] MEDS: CEFEPIME 2 GM/NS 50 ML 2 GM/50 ML BAG IVPB ×3 (04:32→20:53)
[2023-05-08] MEDS: CENTRAL LINE FLUSH 10 ML IV PUSH ×2 (04:33→14:17)
[2023-05-08 07:39] LABS: Alveolar/Arterial O2 Gradient 106.2 mmHg; Base Excess ABG 8.5 mEq/l (+/-2.0); Device NASAL CANNULA; Fractional Inspired Oxygen 36 %; HCO3 ABG 34.8 mEq/l (22.0-26.0); Modified Allen's Test Pass; Oxygen Content ABG 19.2 %vol (16.0-22.0); Oxygen Saturation ABG 96.7 % (95.0-100.0); Oxyhemoglobin 95.7 % THb (90.0-100.0); PCO2 ABG 54.2 mmHg (35.0-45.0); PO2 ABG 87.6 mmHg (80.0-100.0); PO2 FiO2 Ratio Arterial Blood 2.43 %; Site Drawn LEFT RADIAL; Total Hemoglobin 14.2 g/dL (12.0-18.0); pH ABG 7.425 (7.350-7.450)
[2023-05-08] MEDS: OSELTAMIVIR PHOSPHATE 75 MG CAPSULE PO ×2 (08:05→20:53)
--- NOTE | 2023-05-08 08:29 | P.CDI_ITS ---
CDI Query Clarification Request Documentation in the medical record indicates that this patient has been admitted with or diagnosed as having Pneumonia and Encephalopathy. The following is also documented in the medical record: (1) Sepsis: ?Qualifiers: ?Sepsis type:?sepsis due to unspecified organism??Sepsis acute organ dysfunction status:?with acute organ dysfunction??Severe sepsis acute organ dysf unction type:?encephalopathy??Severe sepsis shock status:?without septic shock? Qualified Code(s):?A41.9 - Sepsis, unspecified organism; R65.20 - Severe sepsis without septic shock; G93.41 - Metabolic encephalopathy ?Code(s): A41.9 - Sepsis, unspecified organism ?Status:?Acute ?Assessment and Plan: Sepsis present on admission with tachycardia, fever, tachypnea, leukopenia and thrombocytopenia CTA of the chest showing no obvious PE but limited due to motion artifact; bilateral lower lobes right greater left airspace disease Sepsis related to acute multifocal pneumonia complicating recent influenza A infection. continue bipap continue azithromycin and cefepime (3) Multifocal pneumonia: ?Code(s): J18.9 - Pneumonia, unspecified organism ?Status:?Acute ?Assessment and Plan: As above (6) Encephalopathy due to infection: ?Code(s): G93.49 - Other encephalopathy; B99.9 - Unspecified infectious disease ?Status:?Acute ?Assessment and Plan: Patient was mildly confused on admission.? Related to bacterial pneumonia and in fluenza. No CT the brain performed.? No focal weakness.? Mental status is improved today. Patient presented with a 102.5 temperature. Patient was started on Cefepime 2 gm Q 8 hours and Azithromycin 500 mg Q 24 hours. Based on your medical judgement , can your further clarify, if known, in the progress notes the specific type of encephalopathy, such as: * Metabolic * Toxic * Hepatic * Hypertensive * Other * Unable to Determine <Kathleen Judge RN - Last Filed: 05/08/23 08:40> Clarified Diagnosis Clarified Diagnosis: metabolic and sepsis related encephalopathy <Josephine Seo MD - Last Filed: 05/08/23 17:37>
[2023-05-08 11:11] LABS: Hematocrit 39.2 % (42.0-52.0); Hemoglobin 12.8 g/dL (14.0-18.0); Immature Platelet Fraction Pct 10.5 % (0.9-11.2); Mean Corpuscular HGB Conc 32.7 g/dl (32-36); Mean Corpuscular Hemoglobin 27.5 pg (26-34); Mean Corpuscular Volume 84.1 fl (80-100); Mean Platelet Volume 11.4 fl (7.4-10.4); Platelet Count Result 116 k/mm3 (150-375); Red Blood Count 4.66 M/mm3 (4.6-6.20); Red Cell Distribution Width 14.1 % (11.5-14.5); White Blood Count 6.5 K/mm3 (4.5-10.0)
[2023-05-08 11:20] LABS: Blood Urea Nitrogen 5 mg/dL (9-20); Calcium 8.1 mg/dL (8.4-10.2); Carbon Dioxide > 40 mmol/L (22-30); Chloride 99 mmol/L (98-107); Estimated CRCL calculation 191 ml/min; Estimated Glomerular Filt Rate > 60; Glucose 155 mg/dL (65-110); Potassium 3.3 mmol/L (3.4-5.0); Sodium 136 mmol/L (137-145)
--- NOTE | 2023-05-08 14:07 | PM.PNPUL ---
Progress Note: A&P Assessment and Plan (1) Influenza A: Code(s): J10.1 - Influenza due to other identified influenza virus with other respiratory manifestations Status: Acute Assessment and Plan: Patient was diagnosed with influenza A on 05/02/2023 and initiated outpatient Tamiflu until he was admitted on 05/05/2023. Patient had elevated CPK with a normal creatinine and was given IV fluids with subsequent worsening oxygenation likely related to fluid overload. He was treated with IV Lasix on 05/07/2023 and diuresed 3.4 L. 05/08/23: overall the patient states he is better than when he him arrived. He still has shortness of breath. His phlegm production is 90% better. His cough is the same. His body aches her 50% better. When I enter the room he was on 3 L nasal cannula saturations 100%. I decreased him to room air and his saturations were 96% after 10 minutes. White blood cell count is 6.5. ABG is 7.43/54/87 this morning on 4 L nasal cannula. patient wore noninvasive ventilation with BiPAP last night and 36% FiO2. Plan: overall the patient is improving. Continue Tamiflu, today is day 7 total. Agree with continuation for a total of 10 days given his severe disease. Although he has wheezing on exam agree withholding systemic and inhaled steroids at this time. Goal saturation 90-94%. Wean oxygen accordingly. Currently he is on room air. I will check a CRP on 05/09/2023. The patient may have hypoxemia at night due to his current disease and or untreated obstructive sleep apnea. Discussed with Dr. Seo, will follow with you. (2) Multifocal pneumonia: Code(s): J18.9 - Pneumonia, unspecified organism Status: Acute Assessment and Plan: In addition to influenza A, the patient may have a concurrent bacterial lung infection and was initially placed on vancomycin, Zosyn and azithromycin on 05/05/2023. procalcitonin was 1.2 on 05/06/2023. He received vancomycin through 05/06/2023, 2 days. MRSA PCR is negative. 05/07: patient is clinically improved. His last fever was 05/05/2023 at 2:00 p.m., he is afebrile today. His white blood cell count is 6.5. In my opinion chest x-ray today shows improved right lower lobe consolidation and improved medial left lower lobe consolidation. The patient has wheezing today and he was a current smoker at 1 pack per day from age [age] for total of 24 pack years. He did have intermittent wheezing prior to this illness. Plan: Continue azithromycin, day 4. Continue cefepime, day 3. Urine Legionella and urine pneumococcal studies pending. I will repeat procalcitonin on 05/08. The patient may have COPD and he is wheezing currently. I will increase his levalbuterol and ipratropium nebulizers from q.6 hours to q.4 hours. I will order an echocardiogram for 05/09/2019 for to assess LV function, RV function, PASP and valve function. Will check BNP on 05/09/2023. (3) Morbid obesity with BMI of 40.0-44.9, adult: Code(s): E66.01 - Morbid (severe) obesity due to excess calories; Z68.41 - Body mass index [BMI] 40.0-44.9, adult Status: Acute Assessment and Plan: Patient likely has untreated obstructive sleep apnea. He says he snores, wakes himself up with grunts and for 2 years his sleeping partner has told him that he stops breathing in his sleep. He presented initially with a BMI 45, venous blood gas of 7.35/42/31 on 2.5 L nasal cannula with a serum bicarbonate of 32. This was in the setting of an acute influenza a infection and possible superimposed secondary bacterial infection. Repeat blood gas on 05/05 at 9:00 a.m. on 3 L nasal cannula 7.36/50/84. Repeat blood gas on 05/07/2023 at 9:45 a.m. on 3 L nasal cannula 7.41/56/44. patient was placed on BiPAP and repeat blood gas on 05/07/23 at 12:13 on BiPAP rate of 14, 16/8 and 55% FiO2 was 7.51/38/184. The blood gases on 05/07/2023 were drawn in association with possible fluid over
--- NOTE | 2023-05-08 14:44 | ECHO_ITS ---
Patient Info Name: Tacho Carvajal Age: 42 years : 1980 Gender: Male Ht: 64 in Wt: 266 lbs BSA: 2.40 m2 HR: 78 bpm BP: 124 / 59 mmHg Technical Quality: Fair Exam Date: 05/08/2023 3:56 PM Exam Location: Echo Lab Exam Room: [facility] Patient Status: Inpatient Admit Date: 05/05/2023 Staff Ordering Physician: Malcolm Choe MD Dispatcher Service: Lizz Mena RDCS Attending Provider: Linda Landis DO Referring Physician: Roque Parikh MD; Exam Type: CA echo doppler color flow Study Info Indications - ASSESS LV RV /VALVE FUNCTION /PASP Complete two-dimensional, color flow and Doppler transthoracic echocardiogram is performed with contrast to opacify the left ventricle and to improve the deliniation of the left ventricle endocardial borders. Contrast/Agitated Saline Contrast/Ag. Saline: Definity Amount: 2.00 ml Administered By: Lizz Mena [facility] Existing IV Access: Yes IV Access Condition: patent with no signs of infiltration Summary 1. Definity contrast administered improved wall motion interpretation. 2. Left ventricular chamber dimension is normal. 3. Left ventricular systolic function is normal, estimated at 60-65%. 4. The left ventricular diastolic function is abnormal. 5. E/e' 12 is mildly elevated. 6. Right ventricular chamber dimension is severely enlarged. 7. Right ventricular systolic function is severely reduced. 8. Right atrial chamber dimension is mildly enlarged. 9. There is mild to moderate tricuspid valve regurgitation. 10. Moderate pulmonary hypertension, estimated pulmonary arterial systolic pressure is 55 mmHg. Left Ventricle Definity contrast administered improved wall motion interpretation. E/e' 12 is mildly elevated. Left ventricular chamber dimension is normal. Left ventricular systolic function is normal, estimated at 60-65%. The left ventricular diastolic function is abnormal. Right Ventricle Right ventricular systolic function is severely reduced. Right ventricular chamber dimension is severely enlarged. Left Atria Left atrial chamber dimension is normal. Right Atria Right atrial chamber dimension is mildly enlarged. Aortic Valve The aortic valve is trileaflet. There is no aortic valve stenosis. There is no aortic valve regurgitation. Pulmonic Valve There is no pulmonic regurgitation. Mitral Valve There is no mitral valve stenosis. There is no mitral valve regurgitation. Tricuspid Valve There is mild to moderate tricuspid valve regurgitation. Moderate pulmonary hypertension, estimated pulmonary arterial systolic pressure is 55 mmHg. Pericardium/Pleural There is no pericardial effusion. Inferior Vena Cava Normal inferior vena cava with >50% collapse upon inspiration consistent with normal right atrial pressure, 5 mmHg. Aorta The aortic root size at the sinus of Valsalva is normal. Left Ventricular Outflow Tract Name Value Normal LVOT 2D LVOT Diameter 2.1 cm LVOT Doppler LVOT Peak Gradient 5 mmHg LVOT Mean Gradient 3 mmHg LVOT VTI 19 cm LVOT VTI/AV VTI Ratio 0.9 L
--- NOTE | 2023-05-08 16:09 | PM.IMPN ---
Progress Note: A&P Assessment and Plan (1) Sepsis: Qualifiers: Sepsis type: sepsis due to unspecified organism Sepsis acute organ dysfunction status: with acute organ dysfunction Severe sepsis acute organ dysfunction type: encephalopathy Severe sepsis shock status: without septic shock Qualified Code(s): A41.9 - Sepsis, unspecified organism; R65.20 - Severe sepsis without septic shock; G93.41 - Metabolic encephalopathy Code(s): A41.9 - Sepsis, unspecified organism Status: Acute Assessment and Plan: Sepsis present on admission with tachycardia, fever, tachypnea, leukopenia and thrombocytopenia CTA of the chest showing no obvious PE but limited due to motion artifact; bilateral lower lobes right greater left airspace disease Sepsis related to acute multifocal pneumonia complicating recent influenza A infection. pt is on RA now continue azithromycin and cefepime pt seen by pulmology (2) Acute hypoxic respiratory failure: Code(s): J96.01 - Acute respiratory failure with hypoxia Status: Acute Assessment and Plan: Patient presents with shortness of breath and found to be hypoxic. ABg reviewed in am ok for RA BIpap by bedside in case he needs it at night element of sleep apnea (3) Multifocal pneumonia: Code(s): J18.9 - Pneumonia, unspecified organism Status: Acute Assessment and Plan: As above (4) Rhabdomyolysis: Code(s): M62.82 - Rhabdomyolysis Status: Acute Assessment and Plan: TCK 4100. Rhabdomyolysis related to Influenza A dc fluids pt is overloaded watch CK encourage oral hydration (5) Influenza A: Code(s): J10.1 - Influenza due to other identified influenza virus with other respiratory manifestations Status: Acute Assessment and Plan: Patient diagnosed with influenza on May 01. continue tamiflu Symptomatic care. (6) Encephalopathy due to infection: Code(s): G93.49 - Other encephalopathy; B99.9 - Unspecified infectious disease Status: Acute Assessment and Plan: Patient was mildly confused on admission. Related to bacterial pneumonia and influenza. No CT the brain performed. No focal weakness. Mental status is improved today. (7) Morbid obesity with BMI of 40.0-44.9, adult: Code(s): E66.01 - Morbid (severe) obesity due to excess calories; Z68.41 - Body mass index [BMI] 40.0-44.9, adult Status: Acute Assessment and Plan: BMI 45. Encourage lifestyle modification (8) Continuous tobacco abuse: Code(s): Z72.0 - Tobacco use Status: Acute Assessment and Plan: Patient smokes cigars. He was educated about the benefits of smoking cessation. Subjective Date/time seen: 05/08/23 16:09 Interval history: 42yo healthy male with tobacco use and obesity here for body aches, fever and cough. He was recently diagnosed with influenza on 05/01. 05/06 Pt has a mottled appearance and sob Pt given iv fluids appears volume overloaded lV lasix has helped pt having good diuresis Nurse worried about pts health pt reviewed by ICU MD continue present care keep BIPAP on 05/07 Pt appears much better on RA Pt seen by pulmonology Pt coughing but feels better Complains of feeling anxious Eating good Review of Systems Review of Systems: Anxiety bouts Exam Narrative: Gen -anxious Chest - clear lung lucia CV - tachycardic, regular Abd - soft obese NT +BS Ext - no edema. Neuro - AOx4 Skin - cool to touch. mottling to midabdomen. cap refill 3 sec in toes. Objective Data Vital Signs Vital Signs: Vital Signs - 24 hr 05/07/23 16:18 05/07/23 16:30 05/07/23 16:30 Temperature 36.3 C L Pulse Rate 100 98 95 Respiratory Rate 22 H 20 Blood Pressure 123/50 L Pulse Oximetry 98 100 Oxygen Delivery BiPAP Oxygen Flow Rate Fraction of Inspired Oxygen 36 05/07/23 18:00 05/07/23 20:00 0
[2023-05-08] MEDS: PERFLUTREN LIPID MICROSPHERES 1.5 ML VIAL DILUTED TO 10 ML TOTAL VOLUME IV PUSH (16:20)
--- NOTE | 2023-05-08 16:40 | IVDEFINITY ---
Prior to administration of IV Definity the patient was educated on the risks and benefits of the imaging enhancing agent including potential adverse side effects. The patient verbalized understanding. Allergies were verified. No exclusion criteria were identified and at least one of the following inclusion criteria were met: 1) physician request, 2) patient technically difficult to image (per the [place] [employer] guidelines of two or more segments not discernable within the apical view), or 3) questionable left ventricular function. ?
[2023-05-08] MEDS: AZITHROMYCIN 250 MG TABLET 500 MG PO (20:53)
[2023-05-08] MEDS: POTASSIUM CHLORIDE 20 MEQ PACKET (FOR LIQUID) PO (20:53)
[2023-05-08] MEDS: ALPRAZolam (*CRX) 0.25 MG TABLET PO (21:04)
[2023-05-09] VITALS (25 sets, daily range): BP systolic 133–151; BP diastolic 74–103; PULSE 94–122; RESP 18–24; TEMP 36.2–37.9; O2SAT 81–97
[2023-05-09] MEDS: ACETAMINOPHEN 325 MG TABLET 650 MG PO ×2 (02:16→21:32)
--- NOTE | 2023-05-09 02:33 | PC.NURSE ---
The pt. was off the tele monitor for few minutes due to the pt. decided to take the monitor off and take a shower without asking the nurse. The nurse saw the pt. was off tele amd went to check on the pt. and found hime in the shower. The rn asked the pt. to come out of the shower but the pt. finished washing up and then came out. The rn stayed outside pt's bathroom and them placed the tele monitor back on the pt. when the pt finished with his shower. The rn explained to the pt. about the importance of keeping his monitor on at all times.
[2023-05-09] MEDS: CEFEPIME 2 GM/NS 50 ML 2 GM/50 ML BAG IVPB ×3 (04:38→21:24)
[2023-05-09 05:07] LABS: Hematocrit 40.4 % (42.0-52.0); Hemoglobin 13.4 g/dL (14.0-18.0); Mean Corpuscular HGB Conc 33.2 g/dl (32-36); Mean Corpuscular Hemoglobin 27.4 pg (26-34); Mean Corpuscular Volume 82.6 fl (80-100); Mean Platelet Volume 11.4 fl (7.4-10.4); Platelet Count Result 141 k/mm3 (150-375); Red Blood Count 4.89 M/mm3 (4.6-6.20); Red Cell Distribution Width 13.8 % (11.5-14.5); White Blood Count 9.2 K/mm3 (4.5-10.0)
[2023-05-09 05:44] LABS: CRP 4.2 mg/dL (<1.0)
[2023-05-09 05:51] LABS: Anion Gap 1 mmol/L (8-16); Blood Urea Nitrogen 6 mg/dL (9-20); Calcium 8.7 mg/dL (8.4-10.2); Carbon Dioxide 35 mmol/L (22-30); Chloride 100 mmol/L (98-107); Estimated CRCL calculation 191 ml/min; Estimated Glomerular Filt Rate > 60; Glucose 105 mg/dL (65-110); Potassium 3.4 mmol/L (3.4-5.0); Sodium 136 mmol/L (137-145)
[2023-05-09 07:56] LABS: Procalcitonin 0.3 ng/mL
[2023-05-09 08:20] LABS: NT Pro B Type Natriuretic Pept 1290 pg/mL (19.9-100)
[2023-05-09] MEDS: POTASSIUM CHLORIDE 20 MEQ PACKET (FOR LIQUID) PO ×2 (08:39→17:25)
[2023-05-09] MEDS: OSELTAMIVIR PHOSPHATE 75 MG CAPSULE PO ×2 (08:39→21:25)
[2023-05-09] MEDS: ALPRAZolam (*CRX) 0.25 MG TABLET PO ×3 (08:43→22:57)
--- NOTE | 2023-05-09 08:48 | PM.IMPN ---
Progress Note: A&P Assessment and Plan (1) Sepsis: Qualifiers: Sepsis acute organ dysfunction status: with acute organ dysfunction Sepsis type: sepsis due to unspecified organism Severe sepsis acute organ dysfunction type: encephalopathy Severe sepsis shock status: without septic shock Qualified Code(s): A41.9 - Sepsis, unspecified organism; R65.20 - Severe sepsis without septic shock; G93.41 - Metabolic encephalopathy Code(s): A41.9 - Sepsis, unspecified organism Status: Acute (2) Acute hypoxic respiratory failure: Code(s): J96.01 - Acute respiratory failure with hypoxia Status: Acute (3) Multifocal pneumonia: Code(s): J18.9 - Pneumonia, unspecified organism Status: Acute (4) Rhabdomyolysis: Code(s): M62.82 - Rhabdomyolysis Status: Acute (5) Influenza A: Code(s): J10.1 - Influenza due to other identified influenza virus with other respiratory manifestations Status: Acute (6) Encephalopathy due to infection: Code(s): G93.49 - Other encephalopathy; B99.9 - Unspecified infectious disease Status: Acute (7) Morbid obesity with BMI of 40.0-44.9, adult: Code(s): E66.01 - Morbid (severe) obesity due to excess calories; Z68.41 - Body mass index [BMI] 40.0-44.9, adult Status: Acute (8) Continuous tobacco abuse: Code(s): Z72.0 - Tobacco use Status: Acute Plan 42yo healthy male with tobacco use and obesity here for body aches, fever and cough. He was recently diagnosed with influenza on 05/01. He was sent home on Tamiflu prednisone and inhaler. Present to the ER on 05/05/2023 with shortness of breath. On presentation to the ER he was tachycardic and hypoxic at 89% needing oxygen supplementation via nasal cannula. Febrile tested positive for influenza A again RSV and COVID negative received normal saline bolus in the ER with the hypotension. CT of the chest was done which demonstrated diffuse multifocal pneumonia. He had mottled appearance. He was started on broad-spectrum antibiotic coverage. ABGs reviewed troponin was negative continued on bronchodilators no prior history of COPD. His oxygen requirement increased due to flash pulmonary edema which he responded well to BiPAP and Lasix. Pulmonary consultation was obtained on 05/07/2023. CK was also elevated at 4105 indicating rhabdomyolysis which continues to improve. Procalcitonin was normal at 1.2. CRP was elevated at 20.3 which is improved down to 4.2. Overall feeling better on Tamiflu and antibiotics as ordered. Echo 05/08/2023 with EF 60-65% abnormal diastolic function right ventricular chamber dimension severely enlarged with systolic function severely reduced. [id number] tricuspid regurgitation. Moderate pulmonary hypertension. Tapered off of BiPAP associated morbid to obesity and continues tobacco use. Mild thrombocytopenia. Blood culture x2 no growth to date Subjective Date/time seen: 05/09/23 08:48 Interval history: 42yo healthy male with tobacco use and obesity here for body aches, fever and cough. He was recently diagnosed with influenza on 05/01. He was sent home on Tamiflu prednisone and inhaler. Present to the ER on 05/05/2023 with shortness of breath. On presentation to the ER he was tachycardic and hypoxic at 89% needing oxygen supplementation via nasal cannula. Febrile test positive for influenza A again RSV and COVID negative received normal saline bolus in the ER with the hypotension. CT of the chest was done which demonstrated diffuse multifocal pneumonia. He had mottled appearance. He was started on broad-spectrum antibiotic coverage. ABGs reviewed troponin was negative continued on bronchodilators no prior history of COPD. His oxygen requirement increased due to flash pulmonary edema which he responded well to BiPAP and Lasix. Pulmonary consultation was obtained on 05/07/2023. CK was also elevated at 4105 indicating rhabdomyolysis procalciton
[2023-05-09] MEDS: LEVALBUTEROL NEB 1.25 MG/3 ML INHALATION ×4 (08:49→20:30)
[2023-05-09] MEDS: IPRATROPIUM BR 0.02% INH SOLN 0.5 MG/2.5 ML VIAL INHALATION ×4 (08:49→20:30)
--- NOTE | 2023-05-09 08:52 | PM.PNPUL ---
Progress Note: A&P Assessment and Plan (1) Influenza A: Code(s): J10.1 - Influenza due to other identified influenza virus with other respiratory manifestations Status: Acute Assessment and Plan: Patient was diagnosed with influenza A on 05/02/2023 and initiated outpatient Tamiflu until he was admitted on 05/05/2023. Patient had elevated CPK with a normal creatinine and was given IV fluids with subsequent worsening oxygenation likely related to fluid overload. He was treated with IV Lasix on 05/07/2023 and diuresed 3.4 L. 05/08/23: overall the patient states he is better than when he him arrived. He still has shortness of breath. His phlegm production is 90% better. His cough is the same. His body aches her 50% better. When I enter the room he was on 3 L nasal cannula saturations 100%. I decreased him to room air and his saturations were 96% after 10 minutes. White blood cell count is 6.5. ABG is 7.43/54/87 this morning on 4 L nasal cannula. patient wore noninvasive ventilation with BiPAP last night and 36% FiO2. Plan: overall the patient is improving. Continue Tamiflu, today is day 7 total. Agree with continuation for a total of 10 days given his severe disease. Although he has wheezing on exam agree withholding systemic and inhaled steroids at this time. Goal saturation 90-94%. Wean oxygen accordingly. Currently he is on room air. I will check a CRP on 05/09/2023. The patient may have hypoxemia at night due to his current disease and or untreated obstructive sleep apnea. Discussed with Dr. Seo, will follow with you. Echocardiogram later in the day showed normal LVEF 60-65%, abnormal diastolic function, severely enlarged right ventricle with severely reduced right ventricular function. Mildly enlarged right atrium, moderate tricuspid regurg with a PASP of 55. 05/09/23: Overall the patient is improving and states that his breathing is 80% back to his normal. He complains of feeling miserable, he is sweating. He took a shower. Cough and phlegm are improved but persist. Patient remained on room air overnight and today his saturations are 92% on room air. He is afebrile. White blood cell count 9.2, creatinine 0.5, CRP has improved from 20.3 to 4.2. Procalcitonin has improved from 1.2 to 0.3. BNP is 1290. Plan: Patient is improving but still feels sick with persistent cough and phlegm that has improved. His oxygenation has improved. His CRP and procalcitonin both have improved. Continue Tamiflu, day 8 total. Goal saturation 90-94%. Currently is on room air. Discussed with Dr. Garcia. Pulmonary inpatient services will resume on 05/12/2023, call the on-call physician for questions. (2) Multifocal pneumonia: Code(s): J18.9 - Pneumonia, unspecified organism Status: Acute Assessment and Plan: In addition to influenza A, the patient may have a concurrent bacterial lung infection and was initially placed on vancomycin, Zosyn and azithromycin on 05/05/2023. procalcitonin was 1.2 on 05/06/2023. He received vancomycin through 05/06/2023, 2 days. MRSA PCR is negative. 05/07: patient is clinically improved. His last fever was 05/05/2023 at 2:00 p.m., he is afebrile today. His white blood cell count is 6.5. In my opinion chest x-ray today shows improved right lower lobe consolidation and improved medial left lower lobe consolidation. The patient has wheezing today and he was a current smoker at 1 pack per day from age [age] for total of 24 pack years. He did have intermittent wheezing prior to this illness. Plan: Continue azithromycin, day 4. Continue cefepime, day 3. Urine Legionella and urine pneumococcal studies pending. I will repeat procalcitonin on 05/08. The patient may have COPD and he is wheezing currently. I will increase his levalbuterol and ipratropium nebulizers from q.6 hours to q.4 hours. I will order an echocardiogram for 05/09/2019 for to assess
[2023-05-09 11:01] LABS: Creatine Kinase 964 U/L (55-170)
[2023-05-09 14:10] LABS: Free T4 Free Thyroxine 1.35 ng/mL (0.78-2.19)
[2023-05-09 17:40] LABS: Creatine Kinase 831 U/L (55-170)
[2023-05-09] MEDS: AZITHROMYCIN 250 MG TABLET 500 MG PO (21:24)
--- NOTE | 2023-05-09 22:57 | PC.NURSE ---
This patient, Tacho Carvajal, was transferred to room 240-01 on 05/09/23 at 2239. Personal belongings sent with patient. Report given to ARNEL Tadeo. Appropriate documentation sent with patient.
--- NOTE | 2023-05-09 23:01 | PC.NURSE ---
RECEIVED PT PER WHEELCHAIR TO ROOM 240. REQUESTING ELMAX
[2023-05-10] VITALS (22 sets, daily range): BP systolic 131–154; BP diastolic 84–90; PULSE 97–120; RESP 18–24; TEMP 36.6–36.8; O2SAT 86–99
--- NOTE | 2023-05-10 | PCRCNOTE ---
Apnea link on HOLD for now. Pt is still very ill. On roomair, pt sats dropped to < 80%. Pt is requiring 2l NC of oxygen off the Bipap at night.
[2023-05-10] MEDS: IPRATROPIUM BR 0.02% INH SOLN 0.5 MG/2.5 ML VIAL INHALATION ×5 (00:25→20:56)
[2023-05-10] MEDS: LEVALBUTEROL NEB 1.25 MG/3 ML INHALATION ×5 (00:25→20:54)
[2023-05-10] MEDS: CEFEPIME 2 GM/NS 50 ML 2 GM/50 ML BAG IVPB ×3 (04:09→20:21)
[2023-05-10 04:34] LABS: Pneumococcal Antigen Urine Not Detected (Not Detected)
[2023-05-10 08:37] LABS: Basophils Percent Auto 0.4 % (0.2-1.2); Eosinophils Percent Auto 0.1 % (0-4.4); Hematocrit 41.9 % (42.0-52.0); Hemoglobin 13.6 g/dL (14.0-18.0); Immature Granulocyte Percent A 3.6 % (0-0.5); Immature Platelet Fraction Pct 11.3 % (0.9-11.2); Lymphocytes Absolute Auto 1.38 K/mm3 (0.9-3.2); Lymphocytes Percent Auto 12.5 % (18.3-44.2); Mean Corpuscular HGB Conc 32.5 g/dl (32-36); Mean Corpuscular Hemoglobin 27.2 pg (26-34); Mean Corpuscular Volume 83.8 fl (80-100); Mean Platelet Volume 11.4 fl (7.4-10.4); Monocytes Absolute Auto 1.4 K/mm3 (0.1-0.6); Monocytes Percent Auto 12.5 % (2.6-8.5); Neutrophils Absolute Auto 7.8 K/mm3 (1.3-6.7); Neutrophils Percent Auto 70.9 % (45.5-73.1); Nucleated Red Blood Cells Perc 0.2 % (0.0-0.2); Platelet Count Result 151 k/mm3 (150-375); Red Cell Distribution Width 13.8 % (11.5-14.5)
[2023-05-10 08:45] LABS: Alanine Aminotransferase 50 U/L (6-50); Albumin Level 3.4 g/dL (3.5-5.1); Alkaline Phosphatase 102 U/L (38-126); Anion Gap 2 mmol/L (8-16); Aspartate Amino Transferase 80 U/L (17-59); Blood Urea Nitrogen 6 mg/dL (9-20); CRP 2.8 mg/dL (<1.0); Calcium 8.7 mg/dL (8.4-10.2); Carbon Dioxide 34 mmol/L (22-30); Chloride 102 mmol/L (98-107); Creatine Kinase 428 U/L (55-170); Estimated CRCL calculation 161 ml/min; Estimated Glomerular Filt Rate > 60; Glucose 104 mg/dL (65-110); Magnesium 2.1 mg/dL (1.6-2.3); Potassium 3.8 mmol/L (3.4-5.0); Sodium 138 mmol/L (137-145)
[2023-05-10] MEDS: OSELTAMIVIR PHOSPHATE 75 MG CAPSULE PO ×2 (09:03→20:21)
[2023-05-10] MEDS: POTASSIUM CHLORIDE 20 MEQ PACKET (FOR LIQUID) PO ×2 (09:04→17:18)
[2023-05-10] MEDS: FUROSEMIDE INJ 40 MG/4 ML VIAL 20 MG IV PUSH (09:07)
[2023-05-10 09:33] LABS: Large Platelets Present; Platelet Estimate Adequate (Adequate); Schistocytes None Seen
[2023-05-10] MEDS: ALPRAZolam (*CRX) 0.25 MG TABLET PO ×3 (10:10→23:53)
[2023-05-10] MEDS: ACETAMINOPHEN 325 MG TABLET 650 MG PO ×3 (10:10→23:53)
--- NOTE | 2023-05-10 16:14 | PM.IMPN ---
Progress Note: A&P Assessment and Plan (1) Sepsis: Code(s): A41.9 - Sepsis, unspecified organism Status: Acute (2) Acute hypoxic respiratory failure: Code(s): J96.01 - Acute respiratory failure with hypoxia Status: Acute (3) Multifocal pneumonia: Code(s): J18.9 - Pneumonia, unspecified organism Status: Acute (4) Rhabdomyolysis: Code(s): M62.82 - Rhabdomyolysis Status: Acute (5) Influenza A: Code(s): J10.1 - Influenza due to other identified influenza virus with other respiratory manifestations Status: Acute (6) Encephalopathy due to infection: Code(s): G93.49 - Other encephalopathy; B99.9 - Unspecified infectious disease Status: Acute (7) Morbid obesity with BMI of 40.0-44.9, adult: Code(s): E66.01 - Morbid (severe) obesity due to excess calories; Z68.41 - Body mass index [BMI] 40.0-44.9, adult Status: Acute (8) Continuous tobacco abuse: Code(s): Z72.0 - Tobacco use Status: Acute Plan 42yo healthy male with tobacco use and obesity here for body aches, fever and cough. He was recently diagnosed with influenza on 05/01. He was sent home on Tamiflu prednisone and inhaler. Present to the ER on 05/05/2023 with shortness of breath. On presentation to the ER he was tachycardic and hypoxic at 89% needing oxygen supplementation via nasal cannula. Febrile tested positive for influenza A again RSV and COVID negative received normal saline bolus in the ER with the hypotension. CT of the chest was done which demonstrated diffuse multifocal pneumonia. He had mottled appearance. He was started on broad-spectrum antibiotic coverage. ABGs reviewed troponin was negative continued on bronchodilators no prior history of COPD. His oxygen requirement increased due to flash pulmonary edema which he responded well to BiPAP and Lasix. Pulmonary consultation was obtained on 05/07/2023. CK was also elevated at 4105 indicating rhabdomyolysis which continues to improve. Procalcitonin was normal at 1.2. CRP was elevated at 20.3 which is improved down to 4.2 and continues to improve. Overall slowly feeling better on Tamiflu and antibiotics as ordered. Echo 05/08/2023 with EF 60-65% abnormal diastolic function right ventricular chamber dimension severely enlarged with systolic function severely reduced. [id number]-umlncyll tricuspid regurgitation. Moderate pulmonary hypertension. Tapered off of BiPAP associated morbid to obesity and continues tobacco use. Mild thrombocytopenia. Blood culture x2 no growth to date Subjective Date/time seen: 05/10/23 16:14 Interval history: 42yo healthy male with tobacco use and obesity here for body aches, fever and cough. He was recently diagnosed with influenza on 05/01. He was sent home on Tamiflu prednisone and inhaler. Present to the ER on 05/05/2023 with shortness of breath. On presentation to the ER he was tachycardic and hypoxic at 89% needing oxygen supplementation via nasal cannula. Febrile test positive for influenza A again RSV and COVID negative received normal saline bolus in the ER with the hypotension. CT of the chest was done which demonstrated diffuse multifocal pneumonia. He had mottled appearance. He was started on broad-spectrum antibiotic coverage. ABGs reviewed troponin was negative continued on bronchodilators no prior history of COPD. His oxygen requirement increased due to flash pulmonary edema which he responded well to BiPAP and Lasix. Pulmonary consultation was obtained on 05/07/2023. CK was also elevated at 4105 indicating rhabdomyolysis procalcitonin was normal at 1.2 CRP was elevated at 20.3. Overall feeling better on Tamiflu and antibiotics as ordered. Echo 05/08/2023 with EF 60-65% abnormal diastolic function right ventricular chamber dimension severely enlarged with systolic function severely reduced. [id number] tricuspid regurgitation. Moderate pulmonary hypertension. Tapered off of
[2023-05-11] VITALS (22 sets, daily range): BP systolic 113–128; BP diastolic 71–88; PULSE 101–134; RESP 18–24; TEMP 36.5–36.8; O2SAT 90–100
[2023-05-11] MEDS: LEVALBUTEROL NEB 1.25 MG/3 ML INHALATION ×6 (00:38→23:57)
[2023-05-11] MEDS: IPRATROPIUM BR 0.02% INH SOLN 0.5 MG/2.5 ML VIAL INHALATION ×6 (00:38→23:57)
--- NOTE | 2023-05-11 02:43 | PCRCNOTE ---
patient was unable to complete the oximetry study on room air
[2023-05-11] MEDS: CEFEPIME 2 GM/NS 50 ML 2 GM/50 ML BAG IVPB ×3 (04:04→20:13)
[2023-05-11 06:03] LABS: Basophils Absolute Auto 0.1 K/mm3 (0.0-0.1); Basophils Percent Auto 0.7 % (0.2-1.2); Eosinophils Percent Auto 0.1 % (0-4.4); Hematocrit 45.6 % (42.0-52.0); Immature Granulocyte Absolute 0.71 K/mm3 (0.00-0.031); Immature Granulocyte Percent A 4.7 % (0-0.5); Lymphocytes Absolute Auto 1.33 K/mm3 (0.9-3.2); Lymphocytes Percent Auto 8.8 % (18.3-44.2); Mean Corpuscular HGB Conc 32.9 g/dl (32-36); Mean Corpuscular Hemoglobin 27.3 pg (26-34); Mean Corpuscular Volume 82.9 fl (80-100); Mean Platelet Volume 11.3 fl (7.4-10.4); Monocytes Percent Auto 13.1 % (2.6-8.5); Neutrophils Absolute Auto 10.9 K/mm3 (1.3-6.7); Neutrophils Percent Auto 72.6 % (45.5-73.1); Nucleated Red Blood Cells Perc 0.2 % (0.0-0.2); Platelet Count Result 176 k/mm3 (150-375); Red Cell Distribution Width 13.4 % (11.5-14.5); White Blood Count 15.1 K/mm3 (4.5-10.0)
[2023-05-11 06:19] LABS: Alanine Aminotransferase 49 U/L (6-50); Albumin Level 3.7 g/dL (3.5-5.1); Alkaline Phosphatase 111 U/L (38-126); Anion Gap 7 mmol/L (8-16); Aspartate Amino Transferase 63 U/L (17-59); Bilirubin,Total 1.5 mg/dL (0.2-1.3); Blood Urea Nitrogen 8 mg/dL (9-20); Carbon Dioxide 28 mmol/L (22-30); Chloride 101 mmol/L (98-107); Creatine Kinase 301 U/L (55-170); Estimated CRCL calculation 184 ml/min; Estimated Glomerular Filt Rate > 60; Glucose 107 mg/dL (65-110); Magnesium 2.1 mg/dL (1.6-2.3); Sodium 136 mmol/L (137-145)
[2023-05-11] MEDS: ACETAMINOPHEN 325 MG TABLET 650 MG PO ×3 (06:41→20:13)
[2023-05-11] MEDS: ALPRAZolam (*CRX) 0.25 MG TABLET PO ×3 (06:41→20:13)
--- NOTE | 2023-05-11 13:25 | ECG_ITS ---
Measurements Intervals [place] Rate: 123 P: 72 MO: 150 QRS: 121 QRSD: 101 T: 101 QT: 328 QTc: 470 Interpretive Statements SINUS TACHYCARDIA INCOMPLETE RIGHT BUNDLE BRANCH BLOCK ST-T WAVE ABNORMALITY IN ANTEROSEPTAL LEADS- CONSIDER ISCHEMIA BASELINE ARTIFACT- V1-V3 ABNORMAL ECG COMPARED TO ECG 05/05/2023 16:03:31 ST (T WAVE) DEVIATION NOW PRESENT Electronically Signed On 05-11-2023 16:58:33 CDT by Randal Laird D.O.
--- NOTE | 2023-05-11 14:08 | PM.IMPN ---
Progress Note: A&P Assessment and Plan (1) Sepsis: Code(s): A41.9 - Sepsis, unspecified organism Status: Acute (2) Acute hypoxic respiratory failure: Code(s): J96.01 - Acute respiratory failure with hypoxia Status: Acute (3) Multifocal pneumonia: Code(s): J18.9 - Pneumonia, unspecified organism Status: Acute (4) Rhabdomyolysis: Code(s): M62.82 - Rhabdomyolysis Status: Acute (5) Influenza A: Code(s): J10.1 - Influenza due to other identified influenza virus with other respiratory manifestations Status: Acute (6) Encephalopathy due to infection: Code(s): G93.49 - Other encephalopathy; B99.9 - Unspecified infectious disease Status: Acute (7) Morbid obesity with BMI of 40.0-44.9, adult: Code(s): E66.01 - Morbid (severe) obesity due to excess calories; Z68.41 - Body mass index [BMI] 40.0-44.9, adult Status: Acute (8) Continuous tobacco abuse: Code(s): Z72.0 - Tobacco use Status: Acute Plan 42yo healthy male with tobacco use and obesity here for body aches, fever and cough. He was recently diagnosed with influenza on 05/01. He was sent home on Tamiflu prednisone and inhaler. Present to the ER on 05/05/2023 with shortness of breath. On presentation to the ER he was tachycardic and hypoxic at 89% needing oxygen supplementation via nasal cannula. He was also Febrile. He Tested positive for influenza A again. RSV and COVID negative. He received normal saline bolus in the ER with the hypotension. CT of the chest was done which demonstrated diffuse multifocal pneumonia. He had mottled appearance. He was started on broad-spectrum antibiotic coverage. ABGs reviewed troponin was negative continued on bronchodilators no prior history of COPD. His oxygen requirement increased due to flash pulmonary edema which he responded well to BiPAP and Lasix. Pulmonary consultation was obtained on 05/07/2023. CK was also elevated at 4105 indicating rhabdomyolysis which continues to improve. Procalcitonin was normal at 1.2. CRP was elevated at 20.3 which is improved down to 4.2 and continues to improve. Overall slowly feeling better on Tamiflu which he completed and antibiotics as ordered. Chest x-ray continues to improve on serial evaluation. Echo 05/08/2023 with EF 60-65% abnormal diastolic function right ventricular chamber dimension severely enlarged with systolic function severely reduced. [id number]-xy-ndescenc tricuspid regurgitation. Moderate pulmonary hypertension. Tapered off of BiPAP associated morbid to obesity and continues tobacco use. Mild thrombocytopenia which has resolved. Blood culture x2 no growth to date. Sinus tachycardia new 05/11/2023 worsened oxygenation remains stable. Will repeat CTA. Check BNP . Complains of calf pain. Will check venous duplex again. DVT prophylaxis start Lovenox Subjective Date/time seen: 05/11/23 14:08 Interval history: 42yo healthy male with tobacco use and obesity here for body aches, fever and cough. He was recently diagnosed with influenza on 05/01. He was sent home on Tamiflu prednisone and inhaler. Present to the ER on 05/05/2023 with shortness of breath. On presentation to the ER he was tachycardic and hypoxic at 89% needing oxygen supplementation via nasal cannula. Febrile test positive for influenza A again RSV and COVID negative received normal saline bolus in the ER with the hypotension. CT of the chest was done which demonstrated diffuse multifocal pneumonia. He had mottled appearance. He was started on broad-spectrum antibiotic coverage. ABGs reviewed troponin was negative continued on bronchodilators no prior history of COPD. His oxygen requirement increased due to flash pulmonary edema which he responded well to BiPAP and Lasix. Pulmonary consultation was obtained on 05/07/2023. CK was also elevated at 4105 indicating rhabdomyolysis procalcitonin was normal at 1.2 CRP was elevated at 20.3.
[2023-05-11] MEDS: traMADol HCL (*CRX) 50 MG TABLET PO ×2 (15:42→21:47)
[2023-05-11] MEDS: ENOXAPARIN 40 MG/0.4 ML SYRINGE SUB-Q (15:43)
[2023-05-11 17:01] LABS: NT Pro B Type Natriuretic Pept 2830 pg/mL (19.9-100)
[2023-05-11 17:12] LABS: Procalcitonin 0.1 ng/mL
[2023-05-11] MEDS: ENOXAPARIN 80 MG/0.8 ML SYRINGE 70 MG SUB-Q (17:14)
[2023-05-11] MEDS: POTASSIUM CHLORIDE 20 MEQ PACKET (FOR LIQUID) PO (17:14)
[2023-05-11] MEDS: FLUTICASONE PROPIONATE 0.05% NA SPR 16 GM BTL (*BKC) 1 SPRAY NASAL (20:12)
[2023-05-12] VITALS (22 sets, daily range): BP systolic 100–127; BP diastolic 60–74; PULSE 86–126; RESP 14–24; TEMP 36.7–37.4; O2SAT 90–94
--- NOTE | 2023-05-12 03:52 | PCRCNOTE ---
Could not complete Apnealink oximetry study on RA. Pt still requires oxygen.
[2023-05-12] MEDS: IPRATROPIUM BR 0.02% INH SOLN 0.5 MG/2.5 ML VIAL INHALATION ×5 (03:56→21:14)
[2023-05-12] MEDS: LEVALBUTEROL NEB 1.25 MG/3 ML INHALATION ×5 (03:56→21:15)
[2023-05-12] MEDS: traMADol HCL (*CRX) 50 MG TABLET PO ×2 (04:01→16:51)
[2023-05-12] MEDS: CEFEPIME 2 GM/NS 50 ML 2 GM/50 ML BAG IVPB ×3 (04:01→19:58)
[2023-05-12] MEDS: ENOXAPARIN 120 MG/0.8 ML SYRINGE 110 MG SUB-Q (04:05)
[2023-05-12] MEDS: FLUTICASONE PROPIONATE 0.05% NA SPR 16 GM BTL (*BKC) 1 SPRAY NASAL ×2 (08:52→19:59)
[2023-05-12] MEDS: FUROSEMIDE INJ 40 MG/4 ML VIAL 20 MG IV PUSH (08:52)
[2023-05-12] MEDS: POTASSIUM CHLORIDE 20 MEQ PACKET (FOR LIQUID) PO ×2 (08:53→16:50)
[2023-05-12] MEDS: ALPRAZolam (*CRX) 0.25 MG TABLET PO ×2 (08:57→19:58)
--- NOTE | 2023-05-12 13:25 | PCNWS ---
Weekly nutritional screen. Patient is tolerating current diet with adequate intake. Intakes varied 0-100%, appetite was poor over the weekend but improved to 100% today. No weight loss reported. No nutritional needs at this time.
[2023-05-12] MEDS: ACETAMINOPHEN 325 MG TABLET 650 MG PO ×2 (13:40→19:58)
[2023-05-12] MEDS: SALINE 0.65% NAS SOLN 44 ML BTL 1 SPRAY NASAL (13:46)
--- NOTE | 2023-05-12 15:46 | PM.IMPN ---
Progress Note: A&P Assessment and Plan (1) Sepsis: Code(s): A41.9 - Sepsis, unspecified organism Status: Acute (2) Acute hypoxic respiratory failure: Code(s): J96.01 - Acute respiratory failure with hypoxia Status: Acute (3) Multifocal pneumonia: Code(s): J18.9 - Pneumonia, unspecified organism Status: Acute (4) Rhabdomyolysis: Code(s): M62.82 - Rhabdomyolysis Status: Acute (5) Influenza A: Code(s): J10.1 - Influenza due to other identified influenza virus with other respiratory manifestations Status: Acute (6) Encephalopathy due to infection: Code(s): G93.49 - Other encephalopathy; B99.9 - Unspecified infectious disease Status: Acute (7) Morbid obesity with BMI of 40.0-44.9, adult: Code(s): E66.01 - Morbid (severe) obesity due to excess calories; Z68.41 - Body mass index [BMI] 40.0-44.9, adult Status: Acute (8) Continuous tobacco abuse: Code(s): Z72.0 - Tobacco use Status: Acute Plan 42yo healthy male with tobacco use and obesity here for body aches, fever and cough. He was recently diagnosed with influenza on 05/01. He was sent home on Tamiflu prednisone and inhaler. Present to the ER on 05/05/2023 with shortness of breath. On presentation to the ER he was tachycardic and hypoxic at 89% needing oxygen supplementation via nasal cannula. He was also Febrile. He Tested positive for influenza A again. RSV and COVID negative. He received normal saline bolus in the ER with the hypotension. CT of the chest was done which demonstrated diffuse multifocal pneumonia. He had mottled appearance. He was started on broad-spectrum antibiotic coverage. ABGs reviewed troponin was negative continued on bronchodilators no prior history of COPD. His oxygen requirement increased due to flash pulmonary edema which he responded well to BiPAP and Lasix. Pulmonary consultation was obtained on 05/07/2023. CK was also elevated at 4105 indicating rhabdomyolysis which continues to improve. Procalcitonin was normal at 1.2. CRP was elevated at 20.3 which is improved down to 4.2 and continues to improve. Overall slowly feeling better on Tamiflu which he completed and antibiotics as ordered. Will complete 7 days course of cefepime today. Chest x-ray continues to improve on serial evaluation. Echo 05/08/2023 with EF 60-65% abnormal diastolic function right ventricular chamber dimension severely enlarged with systolic function severely reduced. [id number]-ui-rentosfd tricuspid regurgitation. Moderate pulmonary hypertension. Tapered off of BiPAP associated morbid to obesity and continues tobacco use. Mild thrombocytopenia which has resolved. Blood culture x2 no growth to date. Sinus tachycardia new 05/11/2023 worsened oxygenation remains stable. BNP is elevated she has been refusing IV Lasix. CTA was done 05/11/23 which showed multiple bilateral upper lobe acute occlusive and nonocclusive segmental and subsegmental pulmonary emboli. Moderate clot burden. RV/LV ratio 1.2. Bilateral multifocal pneumonia. Venous duplex with acute DVT involving the left posterior tibial vein. DVT prophylaxis on therapeutic Lovenox now Subjective Date/time seen: 05/12/23 15:46 Interval history: 42yo healthy male with tobacco use and obesity here for body aches, fever and cough. He was recently diagnosed with influenza on 05/01. He was sent home on Tamiflu prednisone and inhaler. Present to the ER on 05/05/2023 with shortness of breath. On presentation to the ER he was tachycardic and hypoxic at 89% needing oxygen supplementation via nasal cannula. Febrile test positive for influenza A again RSV and COVID negative received normal saline bolus in the ER with the hypotension. CT of the chest was done which demonstrated diffuse multifocal pneumonia. He had mottled appearance. He was started on broad-spectrum antibiotic coverage. ABGs reviewed troponin was negative continued on bronchod
[2023-05-12] MEDS: ENOXAPARIN 120 MG/0.8 ML SYRINGE 115 MG SUB-Q (17:00)
[2023-05-13] VITALS (15 sets, daily range): BP systolic 91–115; BP diastolic 50–72; PULSE 99–122; RESP 16–22; TEMP 36.4; O2SAT 92–98
[2023-05-13 00:28] LABS: Legionella pneumophila Ag Ur Not Detected (Not Detected)
[2023-05-13] MEDS: traMADol HCL (*CRX) 50 MG TABLET PO ×3 (00:40→17:09)
[2023-05-13] MEDS: ALPRAZolam (*CRX) 0.25 MG TABLET PO ×3 (02:50→17:15)
[2023-05-13] MEDS: ACETAMINOPHEN 325 MG TABLET 650 MG PO ×2 (02:50→21:22)
--- NOTE | 2023-05-13 03:51 | PCRCNOTE ---
Apnea link still not done. Pt still 2-3l/m oxygen sating 92-93% and desats if on roomair. Pt did not want to be disturbed tonight. Pt even refused his nebulizer treatments.
[2023-05-13] MEDS: ENOXAPARIN 120 MG/0.8 ML SYRINGE 115 MG SUB-Q ×2 (05:42→17:09)
[2023-05-13 06:02] LABS: Basophils Absolute Auto 0.1 K/mm3 (0.0-0.1); Basophils Percent Auto 0.6 % (0.2-1.2); Eosinophils Percent Auto 0.1 % (0-4.4); Hematocrit 46.3 % (42.0-52.0); Hemoglobin 14.9 g/dL (14.0-18.0); Immature Granulocyte Absolute 1.04 K/mm3 (0.00-0.031); Immature Granulocyte Percent A 5.3 % (0-0.5); Lymphocytes Absolute Auto 1.41 K/mm3 (0.9-3.2); Lymphocytes Percent Auto 7.2 % (18.3-44.2); Mean Corpuscular HGB Conc 32.2 g/dl (32-36); Mean Corpuscular Hemoglobin 27.6 pg (26-34); Mean Corpuscular Volume 85.7 fl (80-100); Mean Platelet Volume 10.4 fl (7.4-10.4); Monocytes Absolute Auto 2.4 K/mm3 (0.1-0.6); Monocytes Percent Auto 12.2 % (2.6-8.5); Neutrophils Absolute Auto 14.6 K/mm3 (1.3-6.7); Neutrophils Percent Auto 74.6 % (45.5-73.1); Platelet Count Result 270 k/mm3 (150-375); Red Cell Distribution Width 13.6 % (11.5-14.5); White Blood Count 19.6 K/mm3 (4.5-10.0)
[2023-05-13 06:27] LABS: Alanine Aminotransferase 36 U/L (6-50); Albumin Level 3.9 g/dL (3.5-5.1); Alkaline Phosphatase 107 U/L (38-126); Anion Gap 5 mmol/L (8-16); Aspartate Amino Transferase 43 U/L (17-59); Bilirubin,Total 1.4 mg/dL (0.2-1.3); Blood Urea Nitrogen 15 mg/dL (9-20); Calcium 9.1 mg/dL (8.4-10.2); Carbon Dioxide 34 mmol/L (22-30); Chloride 98 mmol/L (98-107); Estimated CRCL calculation 120 ml/min; Estimated Glomerular Filt Rate > 60; Glucose 105 mg/dL (65-110); Magnesium 2.6 mg/dL (1.6-2.3); Potassium 5.1 mmol/L (3.4-5.0); Sodium 137 mmol/L (137-145)
[2023-05-13] MEDS: IPRATROPIUM BR 0.02% INH SOLN 0.5 MG/2.5 ML VIAL INHALATION ×4 (07:59→20:08)
[2023-05-13] MEDS: LEVALBUTEROL NEB 1.25 MG/3 ML INHALATION ×4 (08:00→20:08)
[2023-05-13] MEDS: FLUTICASONE PROPIONATE 0.05% NA SPR 16 GM BTL (*BKC) 1 SPRAY NASAL (08:46)
[2023-05-13] MEDS: FUROSEMIDE INJ 40 MG/4 ML VIAL 20 MG IV PUSH (09:36)
--- NOTE | 2023-05-13 10:44 | PCCCNOTE ---
On 05/13/23, the student, [Terri Almaguer], provided care and completed [facility] documentation on this patient. I have reviewed the student's documentation and agree with the findings.
--- NOTE | 2023-05-13 12:03 | PM.IMPN ---
Progress Note: A&P Assessment and Plan (1) Sepsis: Code(s): A41.9 - Sepsis, unspecified organism Status: Acute (2) Acute hypoxic respiratory failure: Code(s): J96.01 - Acute respiratory failure with hypoxia Status: Acute (3) Multifocal pneumonia: Code(s): J18.9 - Pneumonia, unspecified organism Status: Acute (4) Rhabdomyolysis: Code(s): M62.82 - Rhabdomyolysis Status: Acute (5) Influenza A: Code(s): J10.1 - Influenza due to other identified influenza virus with other respiratory manifestations Status: Acute (6) Encephalopathy due to infection: Code(s): G93.49 - Other encephalopathy; B99.9 - Unspecified infectious disease Status: Acute (7) Morbid obesity with BMI of 40.0-44.9, adult: Code(s): E66.01 - Morbid (severe) obesity due to excess calories; Z68.41 - Body mass index [BMI] 40.0-44.9, adult Status: Acute (8) Continuous tobacco abuse: Code(s): Z72.0 - Tobacco use Status: Acute Plan 42yo healthy male with tobacco use and obesity here for body aches, fever and cough. He was recently diagnosed with influenza on 05/01. He was sent home on Tamiflu prednisone and inhaler. Present to the ER on 05/05/2023 with shortness of breath. On presentation to the ER he was tachycardic and hypoxic at 89% needing oxygen supplementation via nasal cannula. He was also Febrile. He Tested positive for influenza A again. RSV and COVID negative. He received normal saline bolus in the ER with the hypotension. CT of the chest was done which demonstrated diffuse multifocal pneumonia. He had mottled appearance. He was started on broad-spectrum antibiotic coverage. ABGs reviewed troponin was negative continued on bronchodilators no prior history of COPD. His oxygen requirement increased due to flash pulmonary edema which he responded well to BiPAP and Lasix. Pulmonary consultation was obtained on 05/07/2023. CK was also elevated at 4105 indicating rhabdomyolysis which continues to improve. Procalcitonin was normal at 1.2. CRP was elevated at 20.3 which is improved down to 4.2 and continues to improve. Overall slowly feeling better on Tamiflu which he completed and he also completes cefepime 7 days course. Procalcitonin has improved down to 0.1. Chest x-ray continues to improve on serial evaluation. Echo 05/08/2023 with EF 60-65% abnormal diastolic function right ventricular chamber dimension severely enlarged with systolic function severely reduced. [id number] tricuspid regurgitation. Moderate pulmonary hypertension. Tapered off of BiPAP associated morbid to obesity and continues tobacco use. Mild thrombocytopenia which has resolved. Blood culture x2 no growth to date. Sinus tachycardia new 05/11/2023 worsened oxygenation remains stable. BNP is elevated she has been refusing IV Lasix. CTA was done 05/11/23 which showed multiple bilateral upper lobe acute occlusive and nonocclusive segmental and subsegmental pulmonary emboli. Moderate clot burden. RV/LV ratio 1.2. Bilateral multifocal pneumonia. Venous duplex with acute DVT involving the left posterior tibial vein. DVT prophylaxis on therapeutic Lovenox now Leukocytosis worsened could be related to underlying PE however will had Augmentin for additional duration to treat his underlying pneumonia. Add PEP therapy budesonide inhaler. Continue bronchodilators and Mucinex Subjective Date/time seen: 05/13/23 12:03 Interval history: 42yo healthy male with tobacco use and obesity here for body aches, fever and cough. He was recently diagnosed with influenza on 05/01. He was sent home on Tamiflu prednisone and inhaler. Present to the ER on 05/05/2023 with shortness of breath. On presentation to the ER he was tachycardic and hypoxic at 89% needing oxygen supplementation via nasal cannula. Febrile test positive for influenza A again RSV and COVID negative received normal saline bolus in the ER with the hypo
[2023-05-13] MEDS: guaiFENesin 12 HR 600 MG TABCR 1200 MG PO ×2 (13:09→21:15)
[2023-05-13] MEDS: BUDESONIDE RESPULE NEB 0.5 MG/2 ML AMP INHALATION (20:08)
[2023-05-13] MEDS: AMOXICILLIN/CLAVULANATE K 875-125 MG TAB 1 TABLET PO (21:15)
[2023-05-14] VITALS (18 sets, daily range): BP systolic 112–124; BP diastolic 60–83; PULSE 107–121; RESP 16–20; TEMP 36.4–37.2; O2SAT 92–98
[2023-05-14] MEDS: traMADol HCL (*CRX) 50 MG TABLET PO ×4 (00:44→20:49)
[2023-05-14] MEDS: ALPRAZolam (*CRX) 0.25 MG TABLET PO ×3 (03:23→19:43)
[2023-05-14] MEDS: ENOXAPARIN 120 MG/0.8 ML SYRINGE 115 MG SUB-Q ×2 (05:29→18:45)
[2023-05-14 05:40] LABS: Basophils Absolute Auto 0.1 K/mm3 (0.0-0.1); Basophils Percent Auto 0.5 % (0.2-1.2); Eosinophils Absolute Auto 0.1 K/mm3 (0-0.3); Eosinophils Percent Auto 0.4 % (0-4.4); Hematocrit 42.5 % (42.0-52.0); Hemoglobin 13.5 g/dL (14.0-18.0); Immature Granulocyte Percent A 3.6 % (0-0.5); Lymphocytes Absolute Auto 1.14 K/mm3 (0.9-3.2); Lymphocytes Percent Auto 6.9 % (18.3-44.2); Mean Corpuscular HGB Conc 31.8 g/dl (32-36); Mean Corpuscular Hemoglobin 27.2 pg (26-34); Mean Corpuscular Volume 85.7 fl (80-100); Mean Platelet Volume 10.7 fl (7.4-10.4); Monocytes Absolute Auto 1.9 K/mm3 (0.1-0.6); Monocytes Percent Auto 11.6 % (2.6-8.5); Neutrophils Absolute Auto 12.7 K/mm3 (1.3-6.7); Platelet Count Result 287 k/mm3 (150-375); Red Blood Count 4.96 M/mm3 (4.6-6.20); Red Cell Distribution Width 13.4 % (11.5-14.5); White Blood Count 16.5 K/mm3 (4.5-10.0)
[2023-05-14 06:08] LABS: Alanine Aminotransferase 29 U/L (6-50); Albumin Level 3.6 g/dL (3.5-5.1); Alkaline Phosphatase 95 U/L (38-126); Anion Gap 6 mmol/L (4-12); Aspartate Amino Transferase 34 U/L (17-59); Bilirubin,Total 1.2 mg/dL (0.2-1.3); Blood Urea Nitrogen 20 mg/dL (9-20); Calcium 9.1 mg/dL (8.4-10.2); Carbon Dioxide 29 mmol/L (22-30); Chloride 99 mmol/L (98-107); Estimated CRCL calculation 119 ml/min; Estimated Glomerular Filt Rate > 60; Glucose 105 mg/dL (65-110); Magnesium 2.7 mg/dL (1.6-2.3); Potassium 4.8 mmol/L (3.4-5.0); Sodium 134 mmol/L (137-145)
[2023-05-14] MEDS: IPRATROPIUM BR 0.02% INH SOLN 0.5 MG/2.5 ML VIAL INHALATION ×4 (07:05→20:13)
[2023-05-14] MEDS: BUDESONIDE RESPULE NEB 0.5 MG/2 ML AMP INHALATION ×2 (07:06→20:13)
[2023-05-14] MEDS: LEVALBUTEROL NEB 1.25 MG/3 ML INHALATION ×4 (07:06→20:13)
[2023-05-14] MEDS: guaiFENesin 12 HR 600 MG TABCR 1200 MG PO ×2 (08:15→20:49)
[2023-05-14] MEDS: AMOXICILLIN/CLAVULANATE K 875-125 MG TAB 1 TABLET PO ×2 (08:16→20:53)
[2023-05-14] MEDS: FLUTICASONE PROPIONATE 0.05% NA SPR 16 GM BTL (*BKC) 1 SPRAY NASAL (08:16)
[2023-05-14] MEDS: FUROSEMIDE INJ 40 MG/4 ML VIAL 20 MG IV PUSH (08:16)
--- NOTE | 2023-05-14 10:56 | PM.IMPN ---
Progress Note: A&P Assessment and Plan (1) Tachycardia determined by examination of pulse: Code(s): R00.0 - Tachycardia, unspecified <Tessa Zacarias Student - Last Filed: 05/14/23 14:47> Status: Acute <Tessa Zacarias Student - Last Filed: 05/14/23 14:47> Assessment and Plan: Telemetry shows episodes of SVT and persistent tachycardia TSH normal ECHO as below Will give IV fluids Hold lasix Continue to monitor on tele <Tessa Zacarias, Student - Last Filed: 05/14/23 14:47> Telemetry shows episodes of SVT and persistent tachycardia TSH normal ECHO as below Hold lasix Continue to monitor on tele <Ranulfo Simon MD - Last Filed: 05/14/23 19:14> (2) Pulmonary embolism: Code(s): I26.99 - Other pulmonary embolism without acute cor pulmonale <Tessa Zacarias, Student - Last Filed: 05/14/23 14:47> Status: Acute <Tessa Zacarias, Student - Last Filed: 05/14/23 14:47> Assessment and Plan: Patient with worsening oxygenation and sinus tachycardia on 05/10 Venous doppler of BLE obtained on 05/10and showed acute left posterior tibial vein DVT CTA obtained on 05/10 showed Multiple bilateral upper lobe acute occlusive and nonocclusive segmental and subsegmental pulmonary emboli. Moderate clot burden. RV/LV ratio 1.2. Bilateral multifocal pneumonia. Therapeutic Lovenox started Wean oxgyen as appropriate Continue Lovenox Likely switch to eliquis on discharge PT/OT <Tessa Zacarias, Student - Last Filed: 05/14/23 14:47> Patient with worsening oxygenation and sinus tachycardia on 05/10 Venous doppler of BLE obtained on 05/10 and showed acute left posterior tibial vein DVT (negative on 05/05) CTA obtained on 05/10 showed multiple bilateral upper lobe acute occlusive and nonocclusive segmental and subsegmental pulmonary emboli. Moderate clot burden. RV/LV ratio 1.2. Bilateral multifocal pneumonia. (CTA chest negative for PE on 05/04) Therapeutic Lovenox started Wean oxgyen as appropriate Continue Lovenox Likely switch to eliquis on discharge; care coordination to assess for cost of Eliquis PT/OT <Ranulfo Simon MD - Last Filed: 05/14/23 19:14> (3) DVT (deep venous thrombosis): Code(s): I82.409 - Acute embolism and thrombosis of unspecified deep veins of unspecified lower extremity <Tessa Zacarias Student - Last Filed: 05/14/23 14:47> Status: Acute <Tessa Zacarias Student - Last Filed: 05/14/23 14:47> Assessment and Plan: See above <Tessa Zacarias Student - Last Filed: 05/14/23 14:47> See above <Ranulfo Smion MD - Last Filed: 05/14/23 19:14> (4) Sepsis: Code(s): A41.9 - Sepsis, unspecified organism <Tessa Zacarias Student - Last Filed: 05/14/23 14:47> Status: Acute <Tessa Zacarias Student - Last Filed: 05/14/23 14:47> Assessment and Plan: On arrival, patient met sepsis criteria as he was tachycardic, febrile, hypotensive, and hypoxic (O2 saturation of 89%) Placed on NS at that time Given sepsis IV fluids Patient with recent history of influenza A s/p course of Tamiflu and prednisone Sepsis related to acute multifocal pneumonia complicating recent influenza A infection CT chest showed diffuse multifocal pneumonia but no PE on 05/04 Started on broad spectrum antibiotic with cefepime, azithromycin and vanc according to antibiotic stewardship guidelines ABG and lactic normal urine legionella and pneumococcal antigen normal Procal of 1.2 and CRP of 20.3 RSV & COVID negative Blood cultures: NGTD Sputum culture: NGTD New CTA and venous doppler showed DVT and PE Abx regimen switched to azithromycin (05/04-05/08) and cefepime (05/05-05/11) Leukocytosis worsened on 05/12; 15.1 to 19.6 -- could be from PE WBC now down to 16.5 Switched to Augmentin on 05/12 <Tessa Zacarias Student - Last Filed: 05/14/23 14:47> On arrival, lacey
[2023-05-14] MEDS: ACETAMINOPHEN 325 MG TABLET 650 MG PO (19:43)
--- NOTE | 2023-05-14 23:33 | PCRCNOTE ---
Apnea link not completed tonight. Patient is still requiring 2-3 L of oxygen at night. Patient desaturates off of oxygen. Pt refused his apnea link as well as his 0000 breathing treatment.
[2023-05-15] VITALS (20 sets, daily range): BP systolic 97–116; BP diastolic 44–64; PULSE 90–133; RESP 16–23; TEMP 36.4–37.1; O2SAT 92–97
[2023-05-15] MEDS: traMADol HCL (*CRX) 50 MG TABLET PO ×3 (02:52→15:24)
[2023-05-15] MEDS: LEVALBUTEROL NEB 1.25 MG/3 ML INHALATION ×5 (04:31→20:20)
[2023-05-15] MEDS: IPRATROPIUM BR 0.02% INH SOLN 0.5 MG/2.5 ML VIAL INHALATION ×5 (04:31→20:20)
[2023-05-15 06:01] LABS: Basophils Absolute Auto 0.1 K/mm3 (0.0-0.1); Basophils Percent Auto 0.3 % (0.2-1.2); Eosinophils Percent Auto 0.2 % (0-4.4); Hematocrit 39.2 % (42.0-52.0); Hemoglobin 12.5 g/dL (14.0-18.0); Immature Granulocyte Absolute 0.36 K/mm3 (0.00-0.031); Immature Granulocyte Percent A 2.2 % (0-0.5); Lymphocytes Percent Auto 7.9 % (18.3-44.2); Mean Corpuscular HGB Conc 31.9 g/dl (32-36); Mean Corpuscular Hemoglobin 26.8 pg (26-34); Mean Corpuscular Volume 84.1 fl (80-100); Mean Platelet Volume 10.3 fl (7.4-10.4); Monocytes Absolute Auto 1.7 K/mm3 (0.1-0.6); Monocytes Percent Auto 10.4 % (2.6-8.5); Platelet Count Result 360 k/mm3 (150-375); Red Blood Count 4.66 M/mm3 (4.6-6.20); Red Cell Distribution Width 13.2 % (11.5-14.5); White Blood Count 16.4 K/mm3 (4.5-10.0)
[2023-05-15 06:16] LABS: Albumin Level 3.6 g/dL (3.5-5.1); Anion Gap 6 mmol/L (4-12); Blood Urea Nitrogen 15 mg/dL (9-20); Calcium 9.2 mg/dL (8.4-10.2); Carbon Dioxide 31 mmol/L (22-30); Chloride 96 mmol/L (98-107); Estimated CRCL calculation 135 ml/min; Estimated Glomerular Filt Rate > 60; Glucose 101 mg/dL (65-110); Magnesium 2.4 mg/dL (1.6-2.3); Phosphorus 3.2 mg/dL (2.5-4.5); Potassium 4.5 mmol/L (3.4-5.0); Sodium 133 mmol/L (137-145)
[2023-05-15] MEDS: ALPRAZolam (*CRX) 0.25 MG TABLET PO ×3 (06:31→21:57)
[2023-05-15] MEDS: ENOXAPARIN 120 MG/0.8 ML SYRINGE 115 MG SUB-Q (06:31)
[2023-05-15] MEDS: BUDESONIDE RESPULE NEB 0.5 MG/2 ML AMP INHALATION ×2 (07:05→20:20)
[2023-05-15] MEDS: AMOXICILLIN/CLAVULANATE K 875-125 MG TAB 1 TABLET PO ×2 (08:47→21:57)
[2023-05-15] MEDS: guaiFENesin 12 HR 600 MG TABCR 1200 MG PO ×2 (08:47→21:57)
[2023-05-15] MEDS: FLUTICASONE PROPIONATE 0.05% NA SPR 16 GM BTL (*BKC) 1 SPRAY NASAL (08:48)
--- NOTE | 2023-05-15 08:52 | PM.IMPN ---
Progress Note: A&P Assessment and Plan (1) Tachycardia determined by examination of pulse: Code(s): R00.0 - Tachycardia, unspecified <Tessa Fontana Deann, Student - Last Filed: 05/15/23 13:25> Status: Acute <Tessa Fontana Deann, - Last Filed: 05/15/23 13:25> Assessment and Plan: Telemetry shows episodes of SVT and persistent tachycardia TSH normal ECHO as below Hold lasix Continue to monitor on tele <Tessa LaraRah Zacarias, - Last Filed: 05/15/23 13:25> (2) Pulmonary embolism: Code(s): I26.99 - Other pulmonary embolism without acute cor pulmonale <Tessa LaraRah Zacarias, Student - Last Filed: 05/15/23 13:25> Status: Acute <Tessa BermudezRah Zacarias, - Last Filed: 05/15/23 13:25> Assessment and Plan: Patient with worsening oxygenation and sinus tachycardia on 05/10 Venous doppler of BLE obtained on 05/10 and showed acute left posterior tibial vein DVT (negative on 05/05) CTA obtained on 05/10 showed multiple bilateral upper lobe acute occlusive and nonocclusive segmental and subsegmental pulmonary emboli. Moderate clot burden. RV/LV ratio 1.2. Bilateral multifocal pneumonia. (CTA chest negative for PE on 05/04) Therapeutic Lovenox started Wean oxgyen as appropriate Switch to Eliquis (05/14) PT/OT <Tessa Zacarias, - Last Filed: 05/15/23 13:25> (3) DVT (deep venous thrombosis): Code(s): I82.409 - Acute embolism and thrombosis of unspecified deep veins of unspecified lower extremity <Tessa LaraRah Zacarias, Student - Last Filed: 05/15/23 13:25> Status: Acute <Tessa LaraRah Zacarias, - Last Filed: 05/15/23 13:25> Assessment and Plan: See above <Tessa Zacarias, - Last Filed: 05/15/23 13:25> (4) Sepsis: Code(s): A41.9 - Sepsis, unspecified organism <Tessa Zacarias, Student - Last Filed: 05/15/23 13:25> Status: Acute <Tessa Zacarias, Student - Last Filed: 05/15/23 13:25> Assessment and Plan: On arrival, patient met sepsis criteria as he was tachycardic, febrile, hypotensive, and hypoxic (O2 saturation of 89%) Placed on NS at that time Given sepsis IV fluids Patient with recent history of influenza A s/p course of Tamiflu and prednisone Sepsis related to acute multifocal pneumonia complicating recent influenza A infection CT chest showed diffuse multifocal pneumonia but no PE on 05/04 Started on broad spectrum antibiotic with cefepime, azithromycin and vanc according to antibiotic stewardship guidelines ABG and lactic normal urine legionella and pneumococcal antigen negative Procal of 1.2 and CRP of 20.3 RSV & COVID negative Blood cultures: NGTD Sputum culture: NGTD New CTA and venous doppler showed DVT and PE Abx regimen switched to azithromycin (05/04-05/08) and cefepime (05/05-05/11) Leukocytosis worsened on 05/12; 15.1 to 19.6 -- could be from PE Switched to Augmentin on 05/12 WBC remains stable today in the 16s (05/14) Repeat sputum culture Repeat chest x-ray Add Doxycycline for atypicals Continue Augmentin <Tessa Zacarias, Student - Last Filed: 05/15/23 13:25> (5) Acute hypoxic respiratory failure: Code(s): J96.01 - Acute respiratory failure with hypoxia <Tessa Zacarias, Student - Last Filed: 05/15/23 13:25> Status: Acute <Tessa Zacarias, Student - Last Filed: 05/15/23 13:25> Assessment and Plan: Patient presented with hypoxia Placed on nasal cannula Proceeded to have worsening oxygenation, likely due to fluid overload/flash pulmonary edema (after receiving IV fluids for sepsis and rhabdomyolysis) Treated with IV lasix and diuresed 3.4L on 05/06 Pulmonology consulted on 05/06 Patient using NC during the day (3-4L) and Bipap at night Started nebulizers The patient may have hypoxemia at night due to his current disease and or untreated obstructive sleep apnea Echo: showed normal LVEF 60-65%, abnormal
[2023-05-15] MEDS: DOXYCYCLINE HYCLATE 100 MG TABLET PO ×2 (14:15→21:57)
[2023-05-15] MEDS: ACETAMINOPHEN 325 MG TABLET 650 MG PO ×2 (14:20→20:09)
[2023-05-15 20:03] LABS: Lactic Acid Reflex 2.3 mmol/L (0.7-2.0)
[2023-05-15 20:44] LABS: Procalcitonin 0.2 ng/mL
[2023-05-15 21:43] LABS: Lactic Acid Reflex 1.3 mmol/L (0.7-2.0)
[2023-05-15] MEDS: APIXABAN 5 MG TABLET 10 MG PO (21:58)
--- NOTE | 2023-05-15 22:14 | PC.NURSE ---
Lactic acid redrawn 90min after initial draw and shows improvement to WNL, lab notified to cancel 3hr reflex draw. Dr Simon notified of results per order.
[2023-05-15 22:47] LABS: Reflex Lactic Acid Yes or No Add Lactic
[2023-05-16] VITALS (19 sets, daily range): BP systolic 118–139; BP diastolic 47–70; PULSE 98–123; RESP 18–24; TEMP 36.4–36.7; O2SAT 94–96
[2023-05-16] MEDS: traMADol HCL (*CRX) 50 MG TABLET PO ×3 (01:37→20:26)
[2023-05-16] MEDS: LEVALBUTEROL NEB 1.25 MG/3 ML INHALATION ×4 (04:04→20:24)
[2023-05-16] MEDS: IPRATROPIUM BR 0.02% INH SOLN 0.5 MG/2.5 ML VIAL INHALATION ×4 (04:04→20:25)
--- NOTE | 2023-05-16 04:30 | PCRCNOTE ---
Unable to do apnea link due to patient requiring 2L O2 at night. Patient did wear bipap for about 3 hours last night. Pt refused his 0000 updraft treatment, but received his 0400 treatment.
[2023-05-16 05:39] LABS: Basophils Absolute Auto 0.1 K/mm3 (0.0-0.1); Basophils Percent Auto 0.4 % (0.2-1.2); Eosinophils Percent Auto 0.1 % (0-4.4); Hematocrit 37.1 % (42.0-52.0); Hemoglobin 11.7 g/dL (14.0-18.0); Immature Granulocyte Percent A 1.8 % (0-0.5); Lymphocytes Absolute Auto 1.42 K/mm3 (0.9-3.2); Lymphocytes Percent Auto 8.5 % (18.3-44.2); Mean Corpuscular HGB Conc 31.5 g/dl (32-36); Mean Corpuscular Hemoglobin 26.8 pg (26-34); Mean Corpuscular Volume 85.1 fl (80-100); Mean Platelet Volume 10.6 fl (7.4-10.4); Monocytes Absolute Auto 1.7 K/mm3 (0.1-0.6); Neutrophils Absolute Auto 13.2 K/mm3 (1.3-6.7); Neutrophils Percent Auto 79.2 % (45.5-73.1); Platelet Count Result 380 k/mm3 (150-375); Red Blood Count 4.36 M/mm3 (4.6-6.20); Red Cell Distribution Width 13.2 % (11.5-14.5); White Blood Count 16.7 K/mm3 (4.5-10.0)
[2023-05-16 05:48] LABS: Alanine Aminotransferase 31 U/L (6-50); Albumin Level 3.4 g/dL (3.5-5.1); Alkaline Phosphatase 87 U/L (38-126); Anion Gap 5 mmol/L (4-12); Aspartate Amino Transferase 40 U/L (17-59); Bilirubin,Total 0.8 mg/dL (0.2-1.3); Blood Urea Nitrogen 15 mg/dL (9-20); Calcium 8.7 mg/dL (8.4-10.2); Carbon Dioxide 27 mmol/L (22-30); Chloride 101 mmol/L (98-107); Estimated CRCL calculation 183 ml/min; Estimated Glomerular Filt Rate > 60; Glucose 99 mg/dL (65-110); Potassium 4.3 mmol/L (3.4-5.0); Sodium 133 mmol/L (137-145)
[2023-05-16] MEDS: BUDESONIDE RESPULE NEB 0.5 MG/2 ML AMP INHALATION ×2 (08:40→20:24)
[2023-05-16] MEDS: APIXABAN 5 MG TABLET 10 MG PO ×2 (08:47→20:25)
[2023-05-16] MEDS: FLUTICASONE PROPIONATE 0.05% NA SPR 16 GM BTL (*BKC) 1 SPRAY NASAL (08:47)
[2023-05-16] MEDS: DOXYCYCLINE HYCLATE 100 MG TABLET PO ×2 (08:47→20:26)
[2023-05-16] MEDS: guaiFENesin 12 HR 600 MG TABCR 1200 MG PO ×2 (08:47→20:25)
[2023-05-16] MEDS: SALINE 0.65% NAS SOLN 44 ML BTL 1 SPRAY NASAL (08:47)
[2023-05-16] MEDS: ALPRAZolam (*CRX) 0.25 MG TABLET PO (08:56)
[2023-05-16] MEDS: AMOXICILLIN/CLAVULANATE K 875-125 MG TAB 1 TABLET PO ×2 (09:05→20:26)
--- NOTE | 2023-05-16 11:12 | PM.IMPN ---
Progress Note: A&P Assessment and Plan (1) Tachycardia determined by examination of pulse: Code(s): R00.0 - Tachycardia, unspecified <Tessa LaraRah Zacarias Student - Last Filed: 05/16/23 15:35> Status: Acute <Tessa BermudezRah Zacarias, Student - Last Filed: 05/16/23 15:35> Assessment and Plan: Telemetry shows episodes of SVT and persistent tachycardia TSH normal ECHO as below Hold lasix Encourage oral hydration Continue to monitor on tele <Tessadestiny Zacarias, Student - Last Filed: 05/16/23 15:35> (2) Pulmonary embolism: Code(s): I26.99 - Other pulmonary embolism without acute cor pulmonale <Tessa Zacarias, Student - Last Filed: 05/16/23 15:35> Status: Acute <Tessa LaraRah Zacarias, Student - Last Filed: 05/16/23 15:35> Assessment and Plan: Patient with worsening oxygenation and sinus tachycardia on 05/10 Venous doppler of BLE obtained on 05/10 and showed acute left posterior tibial vein DVT (negative on 05/05) CTA obtained on 05/10 showed multiple bilateral upper lobe acute occlusive and nonocclusive segmental and subsegmental pulmonary emboli. Moderate clot burden. RV/LV ratio 1.2. Bilateral multifocal pneumonia. (CTA chest negative for PE on 05/04) Therapeutic Lovenox started Wean oxgyen as appropriate Switch to Eliquis (05/14) PT/OT <Tessa Zacarias Student - Last Filed: 05/16/23 15:35> Patient with worsening oxygenation and sinus tachycardia on 05/10 Venous doppler of BLE obtained on 05/10 and showed acute left posterior tibial vein DVT (negative on 05/05) CTA obtained on 05/10 showed multiple bilateral upper lobe acute occlusive and nonocclusive segmental and subsegmental pulmonary emboli. Moderate clot burden. RV/LV ratio 1.2. Bilateral multifocal pneumonia. (CTA chest negative for PE on 05/04) Therapeutic Lovenox started Wean oxgyen as appropriate Switched to Eliquis (05/14) PT/OT <Ranulfo Simon MD - Last Filed: 05/16/23 19:16> (3) DVT (deep venous thrombosis): Code(s): I82.409 - Acute embolism and thrombosis of unspecified deep veins of unspecified lower extremity <Tessa LaraRah Zacarias, Student - Last Filed: 05/16/23 15:35> Status: Acute <Tessa Sharpenahed, Student - Last Filed: 05/16/23 15:35> Assessment and Plan: See above <Tessa LaraRah Zacarias, Student - Last Filed: 05/16/23 15:35> (4) Sepsis: Code(s): A41.9 - Sepsis, unspecified organism <Tessa LaraRah Zacarias, Student - Last Filed: 05/16/23 15:35> Status: Acute <Tessa Fontana Deann, Student - Last Filed: 05/16/23 15:35> Assessment and Plan: On arrival, patient met sepsis criteria as he was tachycardic, febrile, hypotensive, and hypoxic (O2 saturation of 89%) Placed on NS at that time Given sepsis IV fluids Patient with recent history of influenza A s/p course of Tamiflu and prednisone Sepsis related to acute multifocal pneumonia complicating recent influenza A infection CT chest showed diffuse multifocal pneumonia but no PE on 05/04 Started on broad spectrum antibiotic with cefepime, azithromycin and vanc according to antibiotic stewardship guidelines ABG and lactic normal urine legionella and pneumococcal antigen negative Procal of 1.2 and CRP of 20.3 RSV & COVID negative Blood cultures: NGTD Sputum culture: NGTD New CTA and venous doppler showed DVT and PE Abx regimen switched to azithromycin (05/04-05/08) and cefepime (05/05-05/11) Leukocytosis worsened on 05/12; 15.1 to 19.6 -- could be from PE Switched to Augmentin on 05/12 WBC remains stable today in the 16s (05/14) Repeat sputum culture pending Repeat chest x-ray showed diffuse lung disease with worsening on the right from previous study and small pleural effusions Added Doxycycline for atypicals (05/14) Continue Augmentin & Doxy <Tessa LaraRah Zacarias, Student - Last Filed: 05/16/23 15:35> On arrival, patient met sepsis criteria as he was tachycardic, febrile, hypotens
[2023-05-17] VITALS (15 sets, daily range): BP systolic 97–124; BP diastolic 42–71; PULSE 100–113; RESP 16–20; TEMP 36.8–37.2; O2SAT 90–98
[2023-05-17] MEDS: ACETAMINOPHEN 325 MG TABLET 650 MG PO ×2 (05:12→11:12)
[2023-05-17 06:01] LABS: Basophils Absolute Auto 0.1 K/mm3 (0.0-0.1); Basophils Percent Auto 0.6 % (0.2-1.2); Eosinophils Percent Auto 0.1 % (0-4.4); Hemoglobin 12.2 g/dL (14.0-18.0); Immature Granulocyte Absolute 0.37 K/mm3 (0.00-0.031); Immature Granulocyte Percent A 2.7 % (0-0.5); Lymphocytes Absolute Auto 1.29 K/mm3 (0.9-3.2); Lymphocytes Percent Auto 9.3 % (18.3-44.2); Mean Corpuscular HGB Conc 31.3 g/dl (32-36); Mean Corpuscular Hemoglobin 26.9 pg (26-34); Mean Corpuscular Volume 86.1 fl (80-100); Mean Platelet Volume 10.3 fl (7.4-10.4); Monocytes Absolute Auto 1.4 K/mm3 (0.1-0.6); Monocytes Percent Auto 10.2 % (2.6-8.5); Neutrophils Absolute Auto 10.7 K/mm3 (1.3-6.7); Neutrophils Percent Auto 77.1 % (45.5-73.1); Platelet Count Result 490 k/mm3 (150-375); Red Blood Count 4.53 M/mm3 (4.6-6.20); Red Cell Distribution Width 13.1 % (11.5-14.5); White Blood Count 13.8 K/mm3 (4.5-10.0)
[2023-05-17 06:08] LABS: Anion Gap 7 mmol/L (4-12); Blood Urea Nitrogen 12 mg/dL (9-20); Calcium 9.3 mg/dL (8.4-10.2); Carbon Dioxide 29 mmol/L (22-30); Chloride 99 mmol/L (98-107); Estimated CRCL calculation 156 ml/min; Estimated Glomerular Filt Rate > 60; Glucose 97 mg/dL (65-110); Sodium 135 mmol/L (137-145)
[2023-05-17] MEDS: BUDESONIDE RESPULE NEB 0.5 MG/2 ML AMP INHALATION (08:09)
[2023-05-17] MEDS: IPRATROPIUM BR 0.02% INH SOLN 0.5 MG/2.5 ML VIAL INHALATION ×3 (08:10→16:40)
[2023-05-17] MEDS: LEVALBUTEROL NEB 1.25 MG/3 ML INHALATION ×3 (08:10→16:40)
--- NOTE | 2023-05-17 08:17 | HOMEO2EVAL ---
Evaluation was performed at [facility] Home Oxygen Evaluation RC: Home Oxygen (O2) Evaluation Start: 05/17/23 06:56 Freq: ONCE Status: Active Protocol: RPE Activity Type Activity Date Activity User E-sign Co-sign Detail Recorded Client Recorded Date Recorded By Document 05/17/23 08:05 EDGARG [id number] 05/17/23 08:11 KAG Document 05/17/23 08:06 KAG [id number] 05/17/23 08:14 KAG Document 05/17/23 08:10 KAG [id number] 05/17/23 08:14 KAG 05/17/23 05/17/23 05/17/23 08:05 08:06 08:10 Home O2 Evaluation [Oxygen] -Test Phase Resting Exercise Resting -Oxygen Delivery Room Air Room Air Room Air [Pulse Oximetry] -Pulse Oximetry (90-100 %) 95 90 91 [Pulse Rate] -Pulse Rate (60-100 beats/min) 100 108 H 102 H [Evaluation] -Activity Tolerance Good [Exercise] -Ambulation Distance (feet) 60 -Ambulation Distance (meters) 18.28 [Comments] -Home Oxygen Evaluation Comments Patient walked a couple laps in patient's room from doorway to bathroom. Patient reported no shortness of breath and tolerated exercise well. [Charges] -Evaluation Charges O2 Evaluation by SIMÓN
--- NOTE | 2023-05-17 08:17 | PCRCNOTE ---
Home Oxygen Evaluation performed on patient, patient placed on room air to find baseline. Patient tolerated room air for rest and exercise. Patient does not qualify for home oxygen at this time. RN informed.
[2023-05-17] MEDS: APIXABAN 5 MG TABLET 10 MG PO (08:29)
[2023-05-17] MEDS: DOXYCYCLINE HYCLATE 100 MG TABLET PO (08:29)
[2023-05-17] MEDS: AMOXICILLIN/CLAVULANATE K 875-125 MG TAB 1 TABLET PO (08:29)
[2023-05-17] MEDS: FLUTICASONE PROPIONATE 0.05% NA SPR 16 GM BTL (*BKC) 1 SPRAY NASAL (08:30)
[2023-05-17] MEDS: guaiFENesin 12 HR 600 MG TABCR 1200 MG PO (09:21)
[2023-05-17] MEDS: traMADol HCL (*CRX) 50 MG TABLET PO ×2 (09:23→16:17)
--- NOTE | 2023-05-17 15:43 | PM.PNPUL ---
Progress Note: A&P Assessment and Plan (1) Acute hypoxic respiratory failure: Code(s): J96.01 - Acute respiratory failure with hypoxia Status: Acute Assessment and Plan: Admitted with multifocal pneumonia with influenza A and rhabdomyolysis, required O2, has flash pulmonary edema requiring Lasix and BiPAP. developed bilateral PE noted on chest CTA 05/10 with Left posterior tibial vein DVT. Wit the PE, he developed right heart failure with enlarged abnormal function of the RV. He feels better, off Oxygen, wants to go home. Can follow up in the office in 2 weeks. ? CXR 05/14 was worse, he is better, no sputum, mild tachycardia, HR 113. Almost no sputum; sputum studies = no information, poor specimen. (2) Multifocal pneumonia: Code(s): J18.9 - Pneumonia, unspecified organism Status: Acute Assessment and Plan: Secondary bacterial infection superimposed on viral pneumonia. No organism was recovered. (3) Influenza A: Code(s): J10.1 - Influenza due to other identified influenza virus with other respiratory manifestations Status: Acute Assessment and Plan: With complications including rhabdomyolysis (4) Right heart failure: Code(s): I50.810 - Right heart failure, unspecified Status: Acute Assessment and Plan: Echo 05/08/2023 - markedly abnormal RV size and function; this was after admission and before PE discovered. High RVSP on echo 55 mmHg May 07. Poor RV function. He does not have swollen legs. (5) Pulmonary hypertension: Code(s): I27.20 - Pulmonary hypertension, unspecified Status: Acute Assessment and Plan: RVSP 55 mmHG on echo 05/08/2023; likely due to acute changes superimposed on chronically elevated PA pressures. Pulmonary pressures can only increase to 40 mmHg acutely, so he had something going on before the pneumonia and flu. Then came the PEs. This can be followed in the clinic. (6) Pulmonary embolism: Code(s): I26.99 - Other pulmonary embolism without acute cor pulmonale Status: Acute Assessment and Plan: Bilateral PEs on CTA chest 05/11/2023 Multiple bilateral upper lobe acute occlusive and nonocclusive segmental and subsegmental pulmonary emboli. Moderate clot burden. RV/LV ratio 1.2. Bilateral multifocal pneumonia. on anticoagulation with Eliquis 10 mg bid until May 21, decreased to 5 mg b.i.d for at least 3 months. We will follow this in the office. Plan OK to discharge today, no O2 needed to go home. CXR in a week, visit in 1-2 weeks. PFTs 6 weeks. Echo in a month for pulmonary hypertension. Sleep evaluation and testing. Continue anticoagulation for 3 months minimum. Date of PE 05/11/2023 so at least August 11, 2023 I will notify office to contact him. He was too sick to get ApneaLink while he was here, had O2 on at night. d/w Dr Simno Subjective Date/time seen: 05/17/23 15:43 Interval history: follow up hospital pulmonary visit: 05/17/2023, see below 05/07/2023; new Pulmonary consult for influenza with hypoxemic respiratory failure: Tacho Carvajal is a 42-year-old smoker who came in the hospital with shortness of breath, unable to sleep for 2 days due to high fever. He had hypotension, tachycardia, met criteria for sepsis. He has had decrease appetite. On admission he had tachycardia, fever, elevated respiratory rate with multifocal pneumonia on her CTA and a positive influenza a serology. On exam, he had lower extremity mottling, wheezing and crackles on exam. His arterial blood gas did not show severe C
--- NOTE | 2023-05-17 16:04 | PM.DS ---
DS: Admitting Diagnosis Discharge Date 05/17/23 Admitting Diagnosis SOB DS: Discharge Diagnosis Discharge Diagnosis (1) Tachycardia determined by examination of pulse: Code(s): R00.0 - Tachycardia, unspecified Status: Acute (2) Pulmonary embolism: Code(s): I26.99 - Other pulmonary embolism without acute cor pulmonale Status: Acute (3) DVT (deep venous thrombosis): Code(s): I82.409 - Acute embolism and thrombosis of unspecified deep veins of unspecified lower extremity Status: Acute (4) Sepsis: Code(s): A41.9 - Sepsis, unspecified organism Status: Acute (5) Acute hypoxic respiratory failure: Code(s): J96.01 - Acute respiratory failure with hypoxia Status: Acute (6) Multifocal pneumonia: Code(s): J18.9 - Pneumonia, unspecified organism Status: Acute (7) Rhabdomyolysis: Code(s): M62.82 - Rhabdomyolysis Status: Acute (8) Influenza A: Code(s): J10.1 - Influenza due to other identified influenza virus with other respiratory manifestations Status: Acute (9) Pulmonary hypertension: Code(s): I27.20 - Pulmonary hypertension, unspecified Status: Acute (10) Right heart failure: Code(s): I50.810 - Right heart failure, unspecified Status: Acute (11) Morbid obesity with BMI of 40.0-44.9, adult: Code(s): E66.01 - Morbid (severe) obesity due to excess calories; Z68.41 - Body mass index [BMI] 40.0-44.9, adult Status: Acute (12) Continuous tobacco abuse: Code(s): Z72.0 - Tobacco use Status: Acute DS: Summary Hospital Course Reason for hospitalization: 42yo healthy male who presents for SOB, fever, and productive cough. Please see H&P for details. Hospital Course: Sepsis present on admission with tachycardia, fever, tachypnea, leukopenia and thrombocytopenia. CTA of the chest showing no obvious PE but limited due to motion artifact; bilateral lower lobes right greater left airspace disease. Sepsis related to acute multifocal pneumonia complicating recent influenza A infection. BCx negative. Sputum Cx negative. He was started on broad spectrum antibiotic with cefepime, azithromycin and vancomycin according to antibiotic stewardship guidelines. Urine legionella and pneumococcal antigen negative. Influenza A confirmed here and a course of Tamiflu repeated. Patient with worsening oxygenation and sinus tachycardia so venous doppler of BLE obtained on 05/10 and showed acute left posterior tibial vein DVT (dopplers were negative on 05/05). CTA obtained on 05/10 showed multiple bilateral upper lobe acute occlusive and nonocclusive segmental and subsegmental pulmonary emboli with moderate clot burden. RV/LV ratio 1.2. Also with bilateral multifocal pneumonia. (CTA chest negative for PE on 05/04). Therapeutic Lovenox started. Switched to Eliquis (05/14). Pulmonary was consulted and appreciate their input. Patient presented with CK of 4105 felt likely related to the viral illness. CK downtrended with IV fluids. Abx regimen adjusted and completed a course on 05/11. However, leukocytosis worsened and repeat CXR showing diffuse lung disease that was worsening. Augmentin added on 05/12 the Doxycycline. WBC began to trend down and lung exam improved. He was able to come off O2. Home O2 evalaution showing he did not require O2 at home. He continued to have sinus tachycardia. Telemetry did show brief episodes of SVT but this resolved an was mostly showing persistent tachycardia. TSH normal. ECHO normal LVEF 60-65%, abnormal diastolic function, severely enlarged right ventricle with severely reduced right ventricular function.? Mildly enlarged right atrium, moderate tricuspid regurg with moderate pulmonary HTN with PASP of 55mmHg. Was treated with Lasix as well. Patient likely has untreated obstructive sleep apnea.? He says he snores, wakes himself up with grunts and for 2 years his sleeping partner has told him that he s
== END 2023-05-17 17:06 | disposition home or self-care (01) | DRG 720 ==
LOC: ANHED 15:43 → ANH3MEDSUR 05-06 06:43 → ANHIMU 05-06 09:38 → ANH2MED 05-09 22:43
PROVIDERS: Family Medicine; Internal Medicine; Internal Medicine Pulmonary Disease; Admitting Provider Internal Medicine; Emergency Provider Emergency Medicine; Referring Provider Emergency Medicine; Visit Provider Internal Medicine
DX: A41.9 Sepsis, unspecified organism (principal); J11.00 Influenza due to unidentified influenza virus with unspecified type of pneumonia; R65.20 Severe sepsis without septic shock; I82.442 Acute embolism and thrombosis of left tibial vein; I26.99 Other pulmonary embolism without acute cor pulmonale; I47.10 Supraventricular tachycardia, unspecified; E66.9 Obesity, unspecified; E66.2 Morbid (severe) obesity with alveolar hypoventilation; I26.94 Multiple subsegmental thrombotic pulmonary emboli without acute cor pulmonale; Z68.41 Body mass index [BMI] 40.0-44.9, adult; I27.20 Pulmonary hypertension, unspecified; J18.9 Pneumonia, unspecified organism; G93.41 Metabolic encephalopathy; J96.01 Acute respiratory failure with hypoxia; F17.290 Nicotine dependence, other tobacco product, uncomplicated; M62.82 Rhabdomyolysis; F12.90 Cannabis use, unspecified, uncomplicated; Z20.822 Contact with and (suspected) exposure to COVID-19; I50.810 Right heart failure, unspecified
CPT/HCPCS: 36415; 36556; 36600; 71045; 71046; 71275; 80048; 80053; 80069; 82375; 82550; 82565; 82803; 82805; 83050; 83605; 83690; 83735; 83880; 84100; 84145; 84439; 84443; 84484; 85025; 85027; 85049; 85055; 85380; 85384; 85610; 85730; 86140; 87040; 87070; 87205; 87449; 87637; 87641; 87899; 93005; 93970; 94002; 94003; 94618; 94640; 94667; 94668; 96361; 96365; 96368; 96372; 97161; 97165; 99285; A9270; C1751; C8929; J0456; J0692; J1650; J1940; J2270; J2543; J3370; J3475; J7030; Q9957; Q9967